=== PATIENT | male | born 1950 | race Caucasian/White ===

== ENCOUNTER 2018-05-15 10:29 | Inpatient (IN) | payer BC ==
[2018-05-15] MEDS ORDERED: ASPIRIN 81 MG CHEWABLE TABLET ONE (10:55)
[2018-05-15] MEDS ORDERED: MORPHINE 4 MG/ML SYR ONE (10:56)
[2018-05-15 11:00] LABS: Absolute Monocytes 0.6 K/uL (0.1-1.3); Absolute Neutrophil 4.4 K/uL (1.8-8.0); Basophils % 0.8 % (0-1.3); Eosinophils % 6.7 % (0-4.4); Lymphocytes % 26.6 % (15.3-44.8); MCH 30.9 pg (27.0-35.0); MPV 9.1 fL (7.6-11.3); Monocytes % 8.1 % (3.3-12.3); RBC Red Blood Cell Count 4.11 M/uL (4.33-5.43)
[2018-05-15 11:01] LABS: Protime INR 1.08
[2018-05-15 11:22] LABS: ALT/SGPT 29 U/L (12-78); AST/SGOT 19 U/L (15-37); Albumin 3.8 g/dL (3.4-5.0); Alkaline Phosphatase 126 U/L (45-117); BUN Blood Urea Nitrogen 25 mg/dL (7-18); Bicarbonate 27 mmol/L (21-32); Bilirubin Direct 0.1 mg/dL (0-0.2); Bilirubin Total 0.5 mg/dL (0.2-1.0); Glucose Level 296 mg/dL (74-106); Magnesium 1.9 mg/dL (1.8-2.4); NT PRO-BNP 75 pg/mL (<125); Potassium 4.3 mmol/L (3.5-5.1); Protein, Total 7.3 g/dL (6.4-8.2); Sodium Level 139 mmol/L (136-145); Troponin (Emerg Dept Use Only) < 0.02 ng/mL (0.0-0.045)
--- NOTE | 2018-05-15 11:31 | RAD REPORT ---
EXAM DESCRIPTION: [place] Single View05/15/2018 11:03 am CLINICAL HISTORY: Chest pain FINDINGS: The right hemidiaphragm is elevated. This is without significant change from a September 09 examination. The lungs appear clear of acute infiltrate. The heart is normal size
[2018-05-15] MEDS ORDERED: INSULIN -REGULAR HUMAN 50 UNIT/0.5 ML ML ONE (11:38)
[2018-05-15] MEDS ORDERED: NA CHLORIDE 0.9% 500 ML ONE (11:38)
--- NOTE | 2018-05-15 11:40 | EDPHYS ---
Physician Documentation [facility] Name: Sirisha Myles Jr Age: 68 yrs Sex: Male : 1950 Arrival Date: 05/15/2018 Time: 10:33 Bed 5 Private MD: ED Physician Jhonny Becerril HPI: 05/15 10:40 This 68 yrs old Male presents to ER via EMS with complaints of Chest Pain > cp 32 y/o. 10:40 The patient or guardian reports chest pain that is located primarily in the anterior cp chest wall, left. Onset: this morning. 10:40 The pain radiates to the left arm, the left shoulder. cp 10:40 Associated signs and symptoms: Pertinent negatives: abdominal pain, cough, diaphoresis, cp dizziness, headache, lower extremity pain, lower extremity swelling, shortness of breath, syncope, vomiting. The chest pain is described as a pressure. Duration: The patient or guardian reports a single episode, that is still ongoing, but improving. Historical: - Allergies: 11:25 No Known Allergies; tw2 - Home Meds: 10:47 metformin 500 mg oral tab 1 tab 2 times per day [Active]; tw2 - PMHx: 10:47 Kidney stones; Diabetes - NIDDM; tw2 - PSHx: 10:47 Appendectomy; tw2 - Immunization history:: Adult Immunizations. - Social history:: Smoking status: . - Ebola Screening: : Patient denies travel to an Ebola-affected area in the 21 days before illness onset. ROS: 10:45 Constitutional: Negative for body aches, chills, fever, poor PO intake. cp 10:45 Eyes: Negative for injury, pain, redness, and discharge. cp 10:45 ENT: Negative for drainage from ear(s), ear pain, sore throat, difficulty swallowing, difficulty handling secretions. 10:45 Cardiovascular: Positive for chest pain, Negative for edema, palpitations. 10:45 Respiratory: Negative for cough, shortness of breath, wheezing. 10:45 Abdomen/GI: Negative for abdominal pain, vomiting, diarrhea, constipation, anorexia, black/tarry stool, rectal bleeding. 10:45 Back: Negative for pain at rest, pain with movement, radiated pain. 10:45 MS/extremity: Positive for pain, of the left shoulder and left arm, Negative for injury or acute deformity, decreased range of motion, paresthesias, tenderness. 10:45 Skin: Negative for cellulitis, rash. 10:45 Neuro: Negative for altered mental status, headache, syncope, near syncope, weakness. 10:45 All other systems are negative. Exam: 10:36 ECG was reviewed by the Attending Physician. cp 10:50 Constitutional: The patient appears in no acute distress, alert, awake, cp non-diaphoretic, non-toxic, well developed, well nourished. 10:50 Head/Face: Normocephalic, atraumatic. cp 10:50 Eyes: Periorbital structures: appear normal, Conjunctiva: normal, no exudate, no injection, Sclera: no appreciated abnormality, Lids and lashes: appear normal, bilaterally. 10:50 ENT: External ear(s): are unremarkable, Nose: is normal, Mouth: Lips: moist, Oral mucosa: pink and intact, moist, Posterior pharynx: is normal, airway is patent, no erythema, no exudate, Voice: is normal. 10:50 Neck: ROM/movement: is normal, is supple, without pain, no range of motions limitations, no meningismus, no nuchal rigidity. 10:50 Chest/axilla: Inspection: normal, Palpation: is normal, no crepitus, no tenderness. 10:50 Cardiovascular: Rate: normal, Rhythm: regular, Pulses: Pulses are 2+ in right radial artery and left radial artery. Heart sounds: murmur, not appreciated, Edema: is not appreciated, JVD: is not appreciated. 10:50 Respiratory: the patient does not display signs of respiratory distress, Respirations: normal, no use of accessory muscles, no retractions, no splinting, no tachypnea, labored breathing, is not present, Breath sounds: are clear throughout, no decreased breath sounds, no stridor, no wheezing. 10:50 Abdomen/GI: Inspection: abdomen appears normal, Bowel sounds: active, all quadrants, Palpation: abdomen is soft and non-tender, in all quadrants, rebound tenderness, is not appreciated, voluntary guarding, is not appreciated, involuntary guarding, is not appreciated. 10:50 Back: pain, is absent, ROM is normal. 10:50 Skin: cellulitis, is not appreciated, no rash present. 10:50 Neuro: Orientation: to person, place \T\ time. Mentation: lucid, able to follow commands, Cerebellar function: is grossly normal, Motor: moves all fours, strength is normal, Sensation: no obvious gross deficits. Vital Signs: 10:37 BP 144 / 82; Pulse 87; Resp 17; Pulse Ox 99% on 2 lpm NC; Pain 5/10; tw2 10:55 Temp 97.8(O); tw2 12:18 BP 150 / 82; Pulse 72; Resp 12; Pulse Ox 100% on R/A; tw2 13:00 BP 149 / 78; Pulse 64; Resp 17; Pulse Ox 100% on R/A; tw2 14:05 BP 159 / 70; Pulse 96; Resp 13; Pulse Ox 100% on R/A; tw2 MDM: 10:34 Patient medically screened. cp 11:00 Differential diagnosis: abnormal EKG, acute myocardial infarction, chest wall pain, cp costochondritis, pleurisy, pneumonia, pneumothorax, pulmonary embolus, stable angina, thoracic aortic disection, unstable angina. 11:37 The patient was given aspirin in the Emergency Department. Data reviewed: vital signs, nurses notes, lab test result(s), EKG, radiologic studies, plain films. Physician consultation: Talya Marina MD was called at 11:38, was contacted at 11:38, regarding admission, to the telemetry unit. patient's condition. 05/15 10:34 Order name: Basic Metabolic Panel; Complete Time: 11:24 cp 05/15 11:24 Interpretation: Normal except: GLUC 296; BUN 25; CRE 1.50; GFR 47. cp 05/15 10:34 Order name: CBC with Diff; Complete Time: 11:24 cp 05/15 11:24 Interpretation: Normal except: RBC 4.11; HGB 12.7; HCT 37.0; EOSINOPHIL % 6.7. cp 05/15 10:34 Order name: LFT's; Complete Time: 11:24 cp 05/15 10:34 Order name: Magnesium; Complete Time: 11:24 cp 05/15 10:34 Order name: NT PRO-BNP; Complete Time: 11:24 cp 05/15 10:34 Order name: PT-INR; Complete Time: 11:24 cp 05/15 10:34 Order name: Troponin (emerg Dept Use Only); Complete Time: 11:24 cp 05/15 11:25 Interpretation: TROPED < 0.02; Reviewed. 05/15 10:34 Order name: XRAY Chest (1 view); Complete Time: 11:34 05/15 11:35 Interpretation: Report review. 05/15 13:27 Order name: Glucose, Ancillary Testing; Complete Time: 13:39 EDMS 05/15 13:27 Order name: Glucose, Ancillary Testing; Complete Time: 13:39 EDMS 05/15 10:34 Order name: EKG; Complete Time: 10:35 cp 05/15 10:34 Order name: Cardiac monitoring; Complete Time: 10:37 cp 05/15 10:34 Order name: EKG - Nurse/Tech; Complete Time: 10:37 cp 05/15 10:34 Order name: IV Saline Lock; Complete Time: 10:37 05/15 10:34 Order name: Labs collected and sent; Complete Time: 10:48 cp 05/15 10:34 Order name: O2 Per Protocol; Complete Time: 10:38 cp 05/15 10:34 Order name: O2 Sat Monitoring; Complete Time: 10:37 05/15 13:40 Order name: Diet Ada 2000 Marcos; Complete Time: 13:40 cp EC:36 Rate is 84 beats/min. Rhythm is regular. SC interval is normal. QRS interval is normal. cp QT interval is normal. T waves are Inverted in lead aVL. Interpreted by me. Reviewed by me. Administered Medications: 10:54 Drug: Aspirin Chewable Tablet 324 mg Route: PO; tw2 11:26 Follow up: Response: No adverse reaction tw2 10:54 Drug: morphine 2 mg Route: IVP; Site: right antecubital; tw2 11:26 Follow up: Response: No adverse reaction tw2 11:35 Drug: NovoLIN R 7 units {Co-Signature: aa5 (Myah Estrada RN).} Route: Sub-Q; Site: tw2 right upper arm; 12:17 Follow up: Response: No adverse reaction; Blood sugar is lowered; 212 mg/dL blood sugar tw2 11:36 Drug: NS 0.9% 500 ml Route: IV; Rate: bolus; Site: right antecubital; tw2 13:00 Follow up: Response: No adverse reaction; IV Status: Completed infusion; IV Intake: tw2 500ml 12:17 Drug: Metoprolol 25 mg Route: PO; tw2 13:10 Follow up: Response: No adverse reaction; Blood pressure is lowered tw2 Point of Care Testing: Blood Glucose: 11:29 Blood Glucose: 285 mg/dL; tw2 12:18 Blood Glucose: 212 mg/dL; tw2 Ranges: Critical Glucose Levels:Adult <50 mg/dl or >400 mg/dl <40 mg/dl or >180 mg/dl Disposition: 05/15/18 11:39 Hospitalization ordered by Talya Marina for Observation. Preliminary diagnosis is Chest pain, unspecified. - Bed requested for Telemetry/MedSurg (observation). - Status is Observation. cp - Condition is Stable. - Problem is new. - Symptoms have improved. UTI on Admission? No Addendum: 05/19/2018 16:44 Co-signature as Attending Physician, Jhonny Becerril MD. g s Signatures: Dispatcher [employer] EDMS Trixie Arreola Corey, PA PA cp Khushboo Baker RN RN tw2 Jhonny Becerril MD MD Myah Estrada RN aa5 Corrections: (The following items were deleted from the chart) 05/15 13:28 11:39 Hospitalization Ordered by Talya Marina MD for Observation. Preliminary diagnosis bd is Chest pain, unspecified. Bed requested for Telemetry/MedSurg (observation). Status is Observation. Condition is Stable. Problem is new. Symptoms have improved. UTI on Admission? No. cp 14:59 13:28 05/15/2018 11:39 Hospitalization Ordered by Talya Marina MD for Observation. cp Preliminary diagnosis is Chest pain, unspecified. Bed requested for Telemetry/MedSurg (observation). Status is Observation. Condition is Stable. Problem is new. Symptoms have improved. UTI on Admission? No. bd
--- NOTE | 2018-05-15 11:40 | ER ---
Nurse's Notes [facility] Name: Sirisha Myles Jr Age: 68 yrs Sex: Male : 1950 Arrival Date: 05/15/2018 Time: 10:33 Bed 5 Private MD: Diagnosis: Chest pain, unspecified Presentation: 05/15 10:30 Presenting complaint: EMS states: pt c/o chest pain that started 2 days ago, it does tw2 radiate down left arm, he describes it as a sharp pain,and he says he is feeling weak, we gave 2 SL Nitro in route, he states that did relieve his pain, he is hypertensive for us 178/100, blood glucose of 210, 20G LEFT AC. Transition of care: patient was not received from another setting of care. Onset of symptoms was May 15, 2018. Risk Assessment: Do you want to hurt yourself or someone else? Patient reports no desire to harm self or others. Initial Sepsis Screen: Does the patient meet any 2 criteria? No. Patient's initial sepsis screen is negative. Does the patient have a suspected source of infection? No. Patient's initial sepsis screen is negative. Care prior to arrival: Medication(s) given: Nitroglycerin, 0.4 mg SL x 2, IV initiated. 20 GA, in the right antecubital area. 10:30 Method Of Arrival: EMS: [facility] tw2 10:30 Acuity: SIDRA 3 tw2 Historical: - Allergies: 11:25 No Known Allergies; tw2 - Home Meds: 10:47 metformin 500 mg oral tab 1 tab 2 times per day [Active]; tw2 - PMHx: 10:47 Kidney stones; Diabetes - NIDDM; tw2 - PSHx: 10:47 Appendectomy; tw2 - Immunization history:: Adult Immunizations. - Social history:: Smoking status: . - Ebola Screening: : Patient denies travel to an Ebola-affected area in the 21 days before illness onset. Screenin:41 Abuse screen: Denies threats or abuse. Nutritional screening: No deficits noted. tw2 Tuberculosis screening: No symptoms or risk factors identified. Fall Risk None identified. Assessment: 10:33 Reassessment: EKG at bedside at this time. tw2 10:39 General: Appears in no apparent distress. Behavior is calm, cooperative, appropriate tw2 for age. Pain: Complains of pain in chest Pain radiates to left arm. Pain: Pain began 2-3 days ago. Neuro: Level of Consciousness is awake, alert, obeys commands, Oriented to person, place, time, situation. Cardiovascular: Denies shortness of breath, Heart tones S1 S2 Patient's skin is warm and dry. Respiratory: Airway is patent Respiratory effort is even, unlabored, Respiratory pattern is regular, symmetrical, Breath sounds are clear bilaterally. GI: No signs and/or symptoms were reported involving the gastrointestinal system. Abdomen is round non-distended, obese, Bowel sounds present X 4 quads. : No signs and/or symptoms were reported regarding the genitourinary system. EENT: No signs and/or symptoms were reported regarding the EENT system. Derm: No signs and/or symptoms reported regarding the dermatologic system. Musculoskeletal: Range of motion: intact in all extremities. 11:40 Reassessment: Patient appears in no apparent distress at this time. No changes from tw2 previously documented assessment. Patient and/or family updated on plan of care and expected duration. Pain level reassessed. Patient is alert, oriented x 3, equal unlabored respirations, skin warm/dry/pink. 12:18 Reassessment: Patient appears in no apparent distress at this time. No changes from tw2 previously documented assessment. Patient and/or family updated on plan of care and expected duration. Pain level reassessed. Patient is alert, oriented x 3, equal unlabored respirations, skin warm/dry/pink. 13:00 Reassessment: Patient appears in no apparent distress at this time. No changes from tw2 previously documented assessment. Patient and/or family updated on plan of care and expected duration. Pain level reassessed. Patient is alert, oriented x 3, equal unlabored respirations, skin warm/dry/pink. 14:07 Reassessment: Patient appears in no apparent distress at this time. No changes from tw2 previously documented assessment. Patient and/or family updated on plan of care and expected duration. Pain level reassessed. Patient is alert, oriented x 3, equal unlabored respirations, skin warm/dry/pink. Vital Signs: 10:37 BP 144 / 82; Pulse 87; Resp 17; Pulse Ox 99% on 2 lpm NC; Pain 5/10; tw2 10:55 Temp 97.8(O); tw2 12:18 BP 150 / 82; Pulse 72; Resp 12; Pulse Ox 100% on R/A; tw2 13:00 BP 149 / 78; Pulse 64; Resp 17; Pulse Ox 100% on R/A; tw2 14:05 BP 159 / 70; Pulse 96; Resp 13; Pulse Ox 100% on R/A; tw2 ED Course: 10:30 Arm band placed on. tw2 10:30 Bed in low position. Call light in reach. Side rails up X2. media monitor on. Pulse tw2 ox on. NIBP on. 10:33 Patient arrived in ED. tw2 10:33 Carroll Dowling PA is PHCP. cp 10:33 Jhonny Becerril MD is Attending Physician. cp 10:37 Triage completed. tw2 10:41 Maintain EMS IV. Dressing intact. Good blood return noted. Site clean \T\ dry. Gauge \T\ tw 2 site: 20 g RIGHT AC. Patient maintains SpO2 saturation greater than 95% on room air. 10:48 Initial lab(s) drawn, by me, sent to lab. EKG done, by solar thermal technician. reviewed by Carroll FLORES. 11:01 X-ray completed. Patient tolerated procedure well. sw 11:04 XRAY Chest (1 view) In Process Unspecified. EDMS 11:24 Khushboo Baker, KIM is Primary Nurse. tw2 11:38 Talya Marina MD is Hospitalizing Provider. cp 13:45 Echocardiogram with Doppler by technician anatomic pathology. tc 14:10 No provider procedures requiring assistance completed. Patient admitted, IV remains in tw2 place. Administered Medications: 10:54 Drug: Aspirin Chewable Tablet 324 mg Route: PO; tw2 11:26 Follow up: Response: No adverse reaction tw2 10:54 Drug: morphine 2 mg Route: IVP; Site: right antecubital; tw2 11:26 Follow up: Response: No adverse reaction tw2 11:35 Drug: NovoLIN R 7 units {Co-Signature: aa5 (Myah Estrada RN).} Route: Sub-Q; Site: tw2 right upper arm; 12:17 Follow up: Response: No adverse reaction; Blood sugar is lowered; 212 mg/dL blood sugar tw2 11:36 Drug: NS 0.9% 500 ml Route: IV; Rate: bolus; Site: right antecubital; tw2 13:00 Follow up: Response: No adverse reaction; IV Status: Completed infusion; IV Intake: tw2 500ml 12:17 Drug: Metoprolol 25 mg Route: PO; tw2 13:10 Follow up: Response: No adverse reaction; Blood pressure is lowered tw2 Point of Care Testing: Blood Glucose: 11:29 Blood Glucose: 285 mg/dL; tw2 12:18 Blood Glucose: 212 mg/dL; tw2 Ranges: Intake: 13:00 IV: 500ml; Total: 500ml. tw2 Outcome: 11:39 Decision to Hospitalize by Provider. cp 14:10 Admitted to Med/surg accompanied by tech, via stretcher, room 410, with chart, Report tw2 called to KIM Helton 14:10 Condition: stable 14:10 Instructed on the need for admit. 14:59 Patient left the ED. cp Signatures: Dispatcher [employer] EDUog Garcia jb1 Meg Feliciano, critical care technician EKG Grecia Faria Corey, PA PA cp Khushboo Baker, RN RN tw2 Myah Estrada RN aa5
[2018-05-15] MEDS ORDERED: METOPROLOL TAR 25 MG TAB ONE (12:18)
[2018-05-15] MEDS ORDERED: NITROGLYCERIN 0.4 MG/TAB SL PRN (12:27)
[2018-05-15] MEDS ORDERED: ACETAMINOPHEN 500 MG TAB PO PRN (12:27)
[2018-05-15] MEDS ORDERED: GLUCAGON 1 MG/VIAL IM PRN (14:59)
[2018-05-15] MEDS ORDERED: D50W 25 GM/50 ML SYRINGE IV PRN (14:59)
[2018-05-15] MEDS: MORPHINE 4 MG/ML SYR IV PRN ×2 (15:04→23:23)
[2018-05-15 15:21] VITALS: BMI 36.5
--- NOTE | 2018-05-15 15:27 | ECHO ---
HEIGHT: 5 ft 8 in WEIGHT: 240 lb 0 oz DATE OF STUDY: 05/15/[address]: Talya Marina MD 2-DIMENSIONAL: YES M.MODE: YES DOPPLER: YES COLOR FLOW: YES TDS: NO PORTABLE: YES DEFINITY: NO BUBBLE STUDY: NO DIAGNOSIS: CHEST PAIN CARDIAC HISTORY: CATHERIZATION: NO SURGERY: NO PROSTHETIC VALVE: NO PACEMAKER: NO MEASUREMENTS (cm) DIASTOLIC (NORMALS) SYSTOLIC (NORMALS) IVSd 0.9 (0.6-1.2) LA Diam 3.1 (1.9-4.0) LVEF 54% LVIDd 4.7 (3.5-5.7) LVIDs 3.4 (2.0-3.5) %FS 28% LVPWd 1.1 (0.6-1.2) Ao Diam 3.5 (2.0-3.7) 2 DIMENSIONAL ASSESSMENT: RIGHT ATRIUM: NORMAL LEFT ATRIUM: NORMAL RIGHT VENTRICLE: NORMAL LEFT VENTRICLE: NORMAL TRICUSPID VALVE: NORMAL MITRAL VALVE: NORMAL PULMONIC VALVE: NORMAL AORTIC VALVE: NORMAL PERICARDIAL EFFUSION: NONE AORTIC ROOT: NORMAL LEFT VENTRICULAR WALL MOTION: NORMAL. DOPPLER/COLOR FLOW: MILD TRICUSPID REGURGITATION. COMMENTS: MILD TRICUSPID REGURGITATION. NORMAL LEFT VENTRICULAR SIZE AND FUNCTION. NO WALL MOTION ABNORMALITY. NO EFFUSION. TECHNOLOGIST: YASMANI LOONEY
--- NOTE | 2018-05-15 15:27 | EKG ---
Test Date: 2018-05-15 Test Time: 10:33:21 Electroplating Worker: DAVE MEASUREMENT RESULTS: Intervals: Rate: 84 SD: 190 QRSD: 92 QT: 368 QTc: 434 [place]: P: 49 SD: 190 QRS: 68 T: 78 INTERPRETIVE STATEMENTS: Normal sinus rhythm Normal ECG Compared to ECG 09/03/2016 22:40:25 Sinus tachycardia no longer present Electronically Signed On 05-15-18 15:25:28 CDT by Fabrice Ya
[2018-05-15] MEDS ORDERED: INFLUENZA VACCINE (for 3y+) 0.5 ML DOSE IMVAC ONE (17:00)
[2018-05-15] MEDS ORDERED: PNEUMOCOCCAL VACCINE 0.5 ML IMVAC ONE (17:00)
[2018-05-15] MEDS ORDERED: ENOXAPARIN 40 MG/0.4 ML SQ SCH (17:00)
[2018-05-15] MEDS: CYCLOBENZAPRINE 10 MG TAB PO SCH ×2 (17:26→22:10)
[2018-05-15] MEDS: INSULIN -REGULAR HUMAN 50 UNIT/0.5 ML ML SQ SCH ×2 (17:27→20:10)
[2018-05-15] MEDS: METOPROLOL TAR 50 MG TAB PO SCH (20:23)
[2018-05-15] MEDS ORDERED: METOPROLOL TAR 25 MG TAB PO SCH (21:00)
[2018-05-15 22:24] LABS: Urine Appearance CLEAR; Urine Bilirubin NEGATIVE (NEG); Urine Blood NEGATIVE (NEG); Urine Color YELLOW; Urine Glucose TRACE (NEG); Urine Protein 1+ (NEG); Urine Specific Gravity 1.025 (1.005-1.030); Urine Urobilinogen 0.2 mg/dL (0.2-1.0)
[2018-05-15 22:33] LABS: Urine Microscopic Reflex ORDER UMIC
[2018-05-15 23:46] LABS: Urine Bacteria <20 /HPF (NONE SEEN); Urine Culture Reflex Order NOT NEEDED; Urine RBC <5 /HPF (NONE SEEN)
--- NOTE | 2018-05-16 00:58 | HP ---
Date of Admission: 05/15/2018 Code Status: Full. Chief Complaint: Chest pain. History Of Present Illness: The patient is a 68-year-old male with past medical history of hypertens ion, diabetes, comes in to the hospital with pain on his left arm that has been ongoing for the past couple of days. 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 He also reported radiation of the pain to his neck and jaw in towa rds the left side of his chest. The patient's symptoms are constant, moderate, and progressively wor sening, did not improve over the past 2 days, therefore came into the ER for further evaluation. He denies any nausea, vomiting, fever, or chills. No cough or sputum production. No diaphoresis or pal pitations. The patient's initial workup was negative including EKG and cardiac enzymes. The patient was then referred for admission for further evaluation. When seen in the ER, he was awake, alert, o riented x3, in some mild distress. Past Medical History: Hypertension, diabetes. Past Surgical History: Appendectomy, nephrolithiasis, and back surgery with fusion x2. Allergies: NO KNOWN DRUG ALLERGIES. Medications: List reviewed. Social History: The patient denies any tobacco use, alcohol use, or illicit drug use. 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 Family History: Mother had diabetes. Review of Systems: An 11-point system reviewed, negative except as per HPI. Physical Examination: Vital Signs: Blood pressure 144/82, pulse 87, respirations 17, O2 saturation 99% on 2 L via nasal ca nnula. General: Awake, alert, oriented x3. Some mild distress. Obese male. HEENT: Normocephalic, atraumatic. PERRLA. EOMI. Moist mucous membranes. Oropharynx is clear. Po or dentition. Conjunctiva is anicteric. Neck: Supple. No JVD. Trachea midline. CV: S1, S2. No murmurs. Regular rate and rhythm. Peripheral pulses present. Respiratory: Clear to auscultation bilaterally. No wheezing or stridor. No use of accessory muscle s. Gastrointestinal: Abdomen is soft, nontender, nondistended. Positive bowel sounds. No guarding or rigidity. Extremities: No clubbing, cyanosis, or edema. No calf tenderness. Neuro: Cranial nerves 2-12 intact grossly. No focal neurological deficit. Speech is normal. Stren gth is 5/5 in bilateral upper and lower extremities. Musculoskeletal: Tenderness to palpation in the left anterior chest wall around the clavicle. Decre asing range of motion, left shoulder. Laboratory Data: Sodium 139, potassium 4.3, chloride 106, CO2 27, BUN 25, creatinine 1.5, glucose 29 6, calcium 8.8, magnesium 1.9. Troponin less than 0.02. WBC 7.5, H and H 12.7 and 37, platelets 224 , neutrophils 57%. INR 1.08. Chest x-ray shows lungs are clear of acute infiltrate. Heart is don l sized. Right hemidiaphragm is elevated without significant change from August 2016. EKG, no ST e levation, does have some inverted T-waves at V5. Assessment: A 68-year-old male with: 1.Chest pain, rule out acute coronary syndrome. We will start on chest pain guidelines. Obtain car diac enzymes x3. EKG p.r.n. Morphine and nitroglycerin as needed. We will obtain echocardiogram an d consult Cardiology. 2.Obesity. 3.Diabetes mellitus type 2 [place] with hyperglycemia. We will check hemoglobin A1c. Continue on sliding scale insulin. Continue Accu-Cheks. 4.Essential hypertension, stable. We will resume home medications. 5.Gastrointestinal and deep vein thrombosis prophylaxis, PPI and Lovenox. Plan: Admit the patient to Med-Surg, place as observation. Pain may be related to musculoskeletal p ain. We will give a dose of muscle relaxant. The patient does have risk factors including hypertens ion, diabetes, obesity, and metabolic syndrome. We will rule out ACS. Likely discharge in the next 24 hours. /DONN Voice ID: [id number]
[2018-05-16] MEDS: MORPHINE 4 MG/ML SYR IV PRN (04:04)
[2018-05-16 04:12] LABS: Absolute Lymphocytes (CBC) 2.4 K/uL (0.7-4.9); Absolute Monocytes 0.7 K/uL (0.1-1.3); Absolute Neutrophil 5.6 K/uL (1.8-8.0); Basophils % 1.1 % (0-1.3); Eosinophils % 6.2 % (0-4.4); Lymphocytes % 25.6 % (15.3-44.8); MCH 31.1 pg (27.0-35.0); MCV 89.1 fL (80-100); MPV 9.3 fL (7.6-11.3); Monocytes % 7.3 % (3.3-12.3); RBC Red Blood Cell Count 3.93 M/uL (4.33-5.43)
[2018-05-16 04:34] LABS: Potassium 4.3 mmol/L (3.5-5.1)
[2018-05-16] MEDS: ASPIRIN EC 81 MG TAB PO SCH (08:20)
[2018-05-16] MEDS: CYCLOBENZAPRINE 10 MG TAB PO SCH ×3 (08:20→20:35)
[2018-05-16] MEDS: METOPROLOL TAR 50 MG TAB PO SCH ×2 (08:21→20:36)
[2018-05-16] MEDS: INSULIN -REGULAR HUMAN 50 UNIT/0.5 ML ML SQ SCH ×4 (08:21→20:39)
[2018-05-16] MEDS: LISINOPRIL 10 MG TAB PO SCH (08:21)
[2018-05-16] MEDS ORDERED: REGADENOSON 0.4 MG/5 ML SYR IV ONE (08:50)
[2018-05-16] MEDS ORDERED: FENTANYL CITR 100 MCG/2 ML IV ONE (09:05)
--- NOTE | 2018-05-16 11:34 | RAD REPORT ---
EXAM DESCRIPTION: MRI - C Spine W/Wo Cont - 05/16/2018 11:04 am CLINICAL HISTORY: Left arm numbness COMPARISON: None TECHNIQUE: Axial and sagittal magnetic resonance imaging of the cervical spine was obtained. 20 cc M ultiHance administered intravenously FINDINGS: C2-3 is unremarkable Disc bulge and osteophytes are present at C3-4. Mild narrowing of the right and mild to moderate narr owing of the left neural foramina is seen. C4-5 is unremarkable An 10 x 7 x 15 millimeter (cc by AP by trans) broad-based disc herniation is present at C5-6 which ex tends centrally as well as right and left posterolaterally. The spinal cord is compressed. The thecal sac measures 7 millimeters. Moderate to marked narrowing of the neural foramina bilaterally is seen. A 7 x 5 x 18 millimeter (cc by AP by trans) central/left posterolateral disc herniation is present at C6-7 narrowing the left lateral recess. Marked narrowing left neural foramina is seen. C7-T1 is unremarkable. The spinal cord is normal signal. No significant abnormal enhancement within the spine is noted. IMPRESSION: Large broad-based disc herniation C5-6 Large central/left posterolateral disc herniation C6-7
[2018-05-16] MEDS ORDERED: METHYLPREDNISOLONE 125 MG INJ IV ONE (12:19)
[2018-05-16] MEDS ORDERED: HYDROMORPHONE HCL 1 MG/ML INJ IV PRN (13:02)
--- NOTE | 2018-05-16 13:12 | RAD REPORT ---
EXAM DESCRIPTION: NM - Rest Stress Cardiac Imaging - 05/16/2018 12:42 pm CLINICAL HISTORY: Chest pain. COMPARISON: None. TECHNIQUE: The patient was administered approximately 10mCi of Tc 99m Sestamibi prior to resting SPE CT imaging of the heart. The patient was then administered approximately 30 mCi of Tc 99m Sestamibi f ollowing exercise or pharmacologic stress. Multiplanar SPECT images were reviewed. FINDINGS: A small area of diminished radiotracer uptake involves the apical left ventricular myocar dium on stress images. This has a more normal appearance on rest images. Mild diminished radiotracer uptake involving the inferior left ventricular myocardium likely is secon mckenzie to attenuation from the diaphragm Left ventricular ejection fraction equals 54% IMPRESSION: Small apparent reversible perfusion defect involving the apical left ventricular myocar dium may indicate stress-induced ischemia
--- NOTE | 2018-05-16 13:23 | CON ---
Chief Complaint: Pain in the left arm. History Of Present Illness: Pain in the left arm has been there for several days. It hurts him a lo t when he leans over to his left side and extends his arm as if to pick something off the floor from the sitting position. There is no numbness in the fingers. He gets pain relief with various pain me dicines, but it returns. It does not seem to be exacerbated by exertion. He is worried that it is h is heart. He has multiple risk factors for heart disease including diabetes, hypertension, and tobac co use. Outpatient medications have been metoprolol, aspirin, metformin, multivitamin. He has never had myocardial infarction or stroke or any vascular interventions. Never had a stress test. Since he has been in the hospital, his hemoglobin is mildly low at 12.2. His creatinine is slightly elevat ed 1.5 and 1.4 two different measurements. Blood sugars are all elevated. Troponins are normal. To adriana cholesterol is 140, triglycerides 94, and his electrocardiogram is within normal limits. Recommendation: I do not think this represents CAD, but with multiple risk factors, I will recommend we do a stress test. It would be an unusual presentation for CAD, but given the setting, I think it is also ly to do an MRI of the cervical spine, see if he has spinal stenosis. ANGI Voice ID: [id number] Report ID: [id number]
[2018-05-16] MEDS ORDERED: KETOROLAC 30 MG/ML INJ IV ONE (13:51)
[2018-05-16] MEDS ORDERED: HYDRALAZINE HCL 20 MG/ML VIAL IV PRN (13:59)
--- NOTE | 2018-05-16 14:37 | TREADPHA ---
DX: CHEST PAIN Date of Study: 05/16/18 Ht: 5 8 Wt: 240 lb 0 oz Consulting Physician: HOLDEN MEDICATIONS: TYLENOL, ASPIRIN, FLEXERIL, DEXTROSE, LOVENOX, GLUCAGEN, NOVOLIN, PRINIVIL, LOPRESSOR, NOTROSTAT HISTORY: 68 YEAR OLD MALE WITH CHEST PAIN. MEDICAL HISTORY OF DIABETES MELLITUS, KIDNEY STONES, HYPERTENSION. PHYSICIAL EXAMINATION: RESTING B.P.: 176/85 RESTING H.R.: 82 RESTING EKG: NORMAL PROTOCOL: LEXISCAN EXERCISE TIME: 3:30 B.P. AT PEAK STRESS: 154/80 IMPRESSION: LEXISCAN INJECTED, CARDIOLITE INJECTED PER PROTOCOL, SEE NUCLEAR MEDICINE REPORT. NO SUPRA VENTRICULAR TACHYCARDIA, NO VENTRICULAR TACHYCARDA, NO PREMATURE VENTRICULAR COMPLEXES. NON DIAGNOSTIC EKG WITH LEXISCAN STRESS. DENIED CHEST PAIN.
--- NOTE | 2018-05-16 17:59 | PN ---
Date of Progress Note: 05/16/2018 Subjective: The patient is seen and examined. Chart reviewed, and the case was discussed with KIM Leal. The patient is still complaining of significant left arm pain. The patient had a stre ss test today, which was abnormal. Also spoke with Dr. Zimmer, neurosurgeon, regarding outpatient re ferral for his cervical spondylosis. Review of Systems: Negative except as above. Medications: List reviewed. Physical Examination: Vital Signs: Temperature 97.5, heart rate 74, blood pressure 174/102, respirations 16, O2 of 96% on room air. General: Awake, alert, oriented x3. Some acute distress due to arm pain. An elderly male, obese. CV: S1, S2. No murmurs. Regular rate and rhythm. Peripheral pulses present. Respiratory: Moving air well bilaterally. No wheezing or stridor. Gastrointestinal: Abdomen is soft, nontender, nondistended. Positive bowel sounds. Extremities: No clubbing, cyanosis, or edema. Neurologic: Nonfocal. Laboratory Data: Sodium 139, potassium 4.3, chloride 105, CO2 of 27, BUN 26, creatinine 1.4, glucose 219. Hemoglobin A1c 8.1%. Calcium 8.5. Triglycerides 94, cholesterol 148, LDL 80, HDL 41. WBC 9. 4, H and H of 12.2 and 35, platelets 212, neutrophils 59%. Assessment And Plan: A 68-year-old male with: 1.Chest pain. Acute coronary syndrome ruled out, however, stress test does show some stress-induced ischemia. The patient will go for heart catheterization in a.m. 2.Left arm pain and neck pain. Cervical spine MRI does show large broad-based disk herniation, C5-C 6; large central left posterior lateral disk herniation, C6-7. The patient does have some spinal cor d compression. We will give Solu-Medrol 125 mg IV x1. Start on gabapentin. Adjust pain medications . The patient states his pain is still not controlled. Spoke with Dr. Zimmer, neurosurgeon, who pushpa l see the patient on Monday as an outpatient to recommend any acute intervention at this time. 3.Essential hypertension, uncontrolled. We will add IV p.r.n. medications. 4.Diabetes mellitus type 2, non-insulin requiring, with hyperglycemia, hemoglobin A1c 8.1%, uncontro lled. Continue Accu-Cheks and sliding scale. 5.Chronic kidney disease stage 2. Creatinine is around his baseline. Seems to be chronic. 6.Gastrointestinal and deep venous thrombosis prophylaxis with PPI and Lovenox. Plan: Adjust pain medications. Echocardiogram revealed EF 54%. No wall motion abnormality or effus ion. The patient will need outpatient followup with Neurosurgery for cervical spine decompression, h owever, needs cardiac catheterization first. /DONN Voice ID: [id number] Report ID: [id number]
[2018-05-16] MEDS: GABAPENTIN 300 MG CAP PO SCH (20:36)
[2018-05-16] MEDS: KETOROLAC 30 MG/ML INJ IV PRN (20:37)
[2018-05-16] MEDS: ATORVASTATIN 40 MG TAB PO SCH (20:37)
[2018-05-16] MEDS: ACETYLCYST 20% 800 MG/4 ML VIAL PO SCH (20:38)
[2018-05-17] MEDS: METOPROLOL TAR 50 MG TAB PO SCH ×2 (06:23→20:34)
[2018-05-17] MEDS ORDERED: NA CHLORIDE 0.9% 1,000 ML ONE (06:23)
[2018-05-17] MEDS: ACETYLCYST 20% 800 MG/4 ML VIAL PO SCH ×2 (06:23→20:36)
[2018-05-17] MEDS: LISINOPRIL 10 MG TAB PO SCH (06:24)
[2018-05-17] MEDS: ASPIRIN EC 81 MG TAB PO SCH (06:24)
[2018-05-17] MEDS: INSULIN -REGULAR HUMAN 50 UNIT/0.5 ML ML SQ SCH ×4 (07:55→20:32)
[2018-05-17] MEDS: CYCLOBENZAPRINE 10 MG TAB PO SCH ×4 (08:42→20:33)
[2018-05-17] MEDS ORDERED: FENTANYL CITR 100 MCG/2 ML ONE (13:04)
[2018-05-17] MEDS ORDERED: MIDAZOLAM HCL 2 MG/2 ML INJ ONE ×2 (13:04→13:27)
[2018-05-17] MEDS ORDERED: ATROPINE SULF 1 MG/10 ML SYR IV ONE (13:04)
[2018-05-17] MEDS ORDERED: NA CHLORIDE 0.9% 50 ML ONE (13:06)
[2018-05-17] MEDS ORDERED: HEPA 1000U/500MLS 1,000 UNIT/500 ML BAG IV ONE (13:08)
[2018-05-17] MEDS ORDERED: NITROGLYCERIN/D5W 25 MG/250 ML BTL IV ONE (13:51)
[2018-05-17] MEDS ORDERED: NITROGLYCERIN 100 MCG/ML SYR (for cath lab use only) IV ONE (13:51)
[2018-05-17] MEDS ORDERED: CLOPIDOGREL 75 MG TABLET ONE (14:03)
--- NOTE | 2018-05-17 19:42 | PN ---
Date of Progress Note: 05/17/2018 Subjective: The patient seen and examined. Chart reviewed and case discussed with RN and Dr. Ruslan rollins. The patient going for heart catheterization today, had an angioplasty done. Does have some mild coronary artery disease. Review of Systems: Negative except as above. Medications: List reviewed. Objective: Vital Signs: Temperature 98, heart rate 70, respirations 18, O2 98% on 2 L, blood pressu re 104/58. General: Awake, alert, oriented x3. No acute distress. Elderly male, obese. CV: S1, S2. No murmurs. Regular rate and rhythm. Peripheral pulses present. Respiratory: Moving air well bilaterally. No wheezing or stridor. Gastrointestinal: Abdomen is soft, nontender, nondistended. Positive bowel sounds. Extremities: No clubbing, cyanosis, or edema. Neurologic: Nonfocal. Musculoskeletal: Left arm and left lateral chest pain. No tenderness. Laboratory Data: Sodium 138. Glucose range from 388 to 219. Assessment And Plan: A 68-year-old male with: 1.Chest pain. Acute coronary syndrome ruled out. The patient does have some stress induced ischemi a. Cardiac cath showed 40-50% stenosis of the LAD and some mild disease in the RCA, which were dilat ed with angioplasty. No stents were placed. We will continue with aspirin, Plavix, statin, beta-blo cker, and ALE inhibitor. Appreciate Dr. Ya's input. 2.Cervical spine spondylosis with cord compression. The patient will see Dr. Zimmer tomorrow for po ssible decompression. The patient should be able to have surgery in 1 month and can stop Plavix at t hat time. 3.Essential hypertension, uncontrolled. 4.Diabetes mellitus type 2 [id number] with hyperglycemia. Hemoglobin A1c at 8.1%, uncont rolled. We will adjust insulin. 5.Chronic kidney disease, stage 2. Creatinine around baseline. 6.Gastrointestinal and deep venous thrombosis prophylaxis with PPI and Lovenox. Plan: Repeat CBC, CMP in a.m. Continue chest pain guidelines. Discharge in a.m. once cleared by Ca rdiology. SA/MODL Voice ID: [id number] Report ID: [id number]
[2018-05-17] MEDS: ATORVASTATIN 40 MG TAB PO SCH (20:33)
[2018-05-17] MEDS: GABAPENTIN 300 MG CAP PO SCH (20:33)
[2018-05-17] MEDS ORDERED: INSULIN GLARGINE 100 UNITS/ML SQ SCH (21:00)
[2018-05-18 00:17] VITALS: O2SAT 98
[2018-05-18 05:16] LABS: Absolute Lymphocytes (CBC) 2.6 K/uL (0.7-4.9); Absolute Monocytes 0.9 K/uL (0.1-1.3); Absolute Neutrophil 11.3 K/uL (1.8-8.0); Basophils % 0.4 % (0-1.3); Eosinophils % 1.4 % (0-4.4); Hematocrit 36.6 % (39.6-49.0); MCH 31.1 pg (27.0-35.0); MCV 89.9 fL (80-100); MPV 9.6 fL (7.6-11.3); RBC Red Blood Cell Count 4.07 M/uL (4.33-5.43)
[2018-05-18 05:52] LABS: Potassium 4.4 mmol/L (3.5-5.1)
[2018-05-18] MEDS: INSULIN -REGULAR HUMAN 50 UNIT/0.5 ML ML SQ SCH (09:18)
[2018-05-18] MEDS: CYCLOBENZAPRINE 10 MG TAB PO SCH (09:23)
[2018-05-18] MEDS: LISINOPRIL 10 MG TAB PO SCH (09:24)
[2018-05-18] MEDS: METOPROLOL TAR 50 MG TAB PO SCH (09:24)
[2018-05-18] MEDS: KETOROLAC 30 MG/ML INJ IV PRN (09:25)
[2018-05-18] MEDS: ASPIRIN EC 81 MG TAB PO SCH (09:25)
[2018-05-18] MEDS: ACETYLCYST 20% 800 MG/4 ML VIAL PO SCH (09:25)
[2018-05-18 17:24] VITALS: BP 117/55; TEMP 97.8
--- NOTE | 2018-05-19 07:44 | DS ---
Date of Discharge: 05/18/2018 Consultants: Dr. Ya and Dr. Leal with Cardiology. Procedures: On 05/16/2018, Nuclear medicine stress test which showed a perfusion defect of the apica l left ventricular myocardium. Cardiac catheterization on 05/17/2018 showed 40% to 50% LAD stenosis and some mild RCA stenosis, status post balloon angioplasty, no stents. Admitting Diagnoses: 1.Chest pain. 2.Obesity. 3.Diabetes mellitus type 2, non-insulin requiring, with hyperglycemia. 4.Left arm pain and neck pain. 5.Essential hypertension. Discharge Diagnoses: 1.Chest pain, acute coronary syndrome ruled out. 2.Coronary artery disease, status post angioplasty. 3.Cervical spine spondylosis with cord compression. The patient to follow up with Dr. Zimmer in [facility] rosurgery as outpatient. 4.Essential hypertension. 5.Diabetes mellitus type 2, non-insulin requiring, with hyperglycemia, uncontrolled, A1c 8.1%. 6.Chronic kidney disease, stage 2. 7.Obesity, body mass index 36.5. Hospital Course: The patient is a 68-year-old male who comes in with chest pain as well as left arm pain and neck pain. 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 Has history of hypertension, diabetes, morbid obesity; however, does not smoke. The patient was evaluated for acute coronary syndrome. His cardi ac enzymes were negative. His chest pain did resolve. He was seen by Cardiology, recommended cardia c stress test which was abnormal as mentioned above. The patient then went for cardiac catheterizati on and had balloon angioplasty. The patient's symptoms resolved. He did require adjustment of his p ain medications to relieve his arm pain which was secondary to cervical spondylosis and cord compress ion. He was given IV steroids as well. Cervical spine MRI was also obtained. Dr. Zimmer was contac matt and patient will see Dr. iZmmer as an outpatient as there are no neurosurgery services at this [facility]. The patient will need a decompression surgery for his cord compression. At this juncture, t he patient does have some mild weakness and some tingling. He was started on gabapentin which improv ed his symptoms. The patient will be on aspirin, Plavix, and statin. He was counseled regarding his new medications and the importance of being compliant with his medication regimen. The patient's li pid panel was unremarkable. The patient was then cleared for discharge from Cardiology standpoint. Medications: As per medication reconciliation list. Followup: Follow up with primary care physician in 2-3 days. Follow up with bisque brusher, Dr. Kevyn ta, in 2 weeks. Follow up with neurosurgeon, Dr. Zimmer, on Monday. The patient's face sheet was fa xed over to Dr. Zimmer's office. The patient was provided with contact information. I spoke persona marisay with Dr. Zimmer regarding the patient. Diet: Diabetic diet. Activity: As tolerated. The patient needs to see Neurosurgery prior to being cleared for return to work. Total time spent discharging the patient was 41 minutes. No driving or operating heavy machinery whi le on narcotics. Physical Examination: General: Awake, alert, oriented, no acute distress. CV: S1, S2. No murmurs. Respiratory: Moving air well bilaterally. Abdomen: Abdomen is soft, nontender, nondistended. Positive bowel sounds. Extremities: No clubbing, cyanosis, or edema. Neurologic: Nonfocal. SA/MODL Voice ID: [id number] Report ID: [id number]
--- NOTE | 2018-05-20 04:47 | OP ---
Date of Procedure: 05/17/2018 Surgeon: Fabrice Ya MD Hair Boiler Operator: Allyssa Valentin. Total conscious sedation was 45 minutes. Procedure: Left heart catheterization, selective coronary arteriogram, angioplasty of the proximal a nd mid right coronary artery. Indications: Mr. Myles is 68 years old, was admitted to Dr. Marina, chest pain, needing for spine surgery, abnormal stress test, brought into the boot and shoe laborer on 05/17/2018. Procedure In Detail: The patient prepped and draped in the routine sterile fashion, given 2 mg of Ve rsed for IV sedation. A 6-Monegasque sheath was introduced in the right common femoral artery and StarCl ose was used to close the case. Diagnostic catheterization using Mickey catheter revealed about a 4 0% proximal LAD lesion, very large vessel. Circumflex was normal. There were some plaque and calcif ication in the left main. RCA was very tortuous with about a 70% proximal and 90% mid RCA lesion. T he RCA was cannulated with a JR4 guide 6-Monegasque and a Sheldon wire was used to cross the lesion succes sfully. Angioplasty with a 2.5 x 15 Emerge balloon was done with multiple inflations up to 12 atmosp heres throughout the RCA proximal and mid. Angiography after the angioplasty was excellent with a 10 % residual proximally and 0% residual distally. Since patient is in need of rather urgent spinal daniela faina, I decided not to put a stent in. There was no dissection. SHAUN-3 flow, excellent result. The patient did receive some Plavix and aspirin and Angiomax during the procedure. There were no compli cations. Blood loss was 5 cc. Final Diagnoses: Coronary artery disease, status post successful angioplasty of the proximal and mid right coronary artery, 40% left anterior descending lesion. Plan: The plan is to discharge the patient on aspirin, Plavix, statin, beta blockers, and I think he can have his surgery within 1 month as far as this plan is concerned. The case was discussed with Chapito Marina. LANDON/DONN Voice ID: [id number] Report ID: [id number]
== END 2018-05-18 12:44 | disposition home or self-care (01) | DRG 251 ==
LOC: ER 10:29 → ERHOLD 11:45 → 4TH 14:15 → OBSVTOIN 05-17 08:54
PROVIDERS: ADMIT Family Medicine; ATTEND Family Medicine
PROC: 02703ZZ Dilation of Coronary Artery, One Artery, Percutaneous Approach (ICD-10-PCS; principal; 2018-05-17)
PROC: B201YZZ Plain Radiography of Multiple Coronary Arteries using Other Contrast (ICD-10-PCS; 2018-05-17)
DX: R07.9 Chest pain, unspecified (principal); E11.65 Type 2 diabetes mellitus with hyperglycemia; E66.9 Obesity, unspecified; E11.22 Type 2 diabetes mellitus with diabetic chronic kidney disease; I12.9 Hypertensive chronic kidney disease with stage 1 through stage 4 chronic kidney disease, or unspecified chronic kidney disease; N18.2 Chronic kidney disease, stage 2 (mild); M47.892 Other spondylosis, cervical region; Z68.36 Body mass index [BMI] 36.0-36.9, adult
CPT/HCPCS: 36415; 71045; 72156; 78452; 80048; 80061; 80076; 81003; 81015; 82962; 83036; 83735; 83880; 84484; 85025; 85347; 85610; 93005; 93017; 93306; 93454; 94760; 96361; 96372; 96374; 99285; A9500; A9577; C1725; C1893; G0378; J0360; J0583; J1170; J1650; J2250; J2785; J2930; J3010; J7030

== ENCOUNTER 2020-01-27 22:02 | Emergency (ER) | payer BC ==
[2020-01-27 22:38] LABS: Basophils % 0.8 % (0-1.3); Hematocrit 42.6 % (39.6-49.0); Lymphocytes % 19.8 % (15.3-44.8); MPV 9.5 fL (7.6-11.3); RBC Red Blood Cell Count 4.74 M/uL (4.33-5.43)
--- NOTE | 2020-01-27 22:55 | RAD REPORT ---
EXAM DESCRIPTION: [facility] Single View01/27/2020 10:39 pm CLINICAL HISTORY: Hypertension COMPARISON: 2017 FINDINGS: The lungs appear clear of acute infiltrate. The heart is normal size. The right hemidiaph ragm remains elevated IMPRESSION: No acute abnormalities displayed
[2020-01-27 23:04] LABS: Protime INR 1.03
[2020-01-27 23:39] LABS: ALT/SGPT 29 U/L (12-78); AST/SGOT 19 U/L (15-37); Albumin 3.5 g/dL (3.4-5.0); Alkaline Phosphatase 207 U/L (45-117); BUN Blood Urea Nitrogen 21 mg/dL (7-18); Bicarbonate 25 mmol/L (21-32); Bilirubin Direct 0.1 mg/dL (0-0.2); Bilirubin Total 0.5 mg/dL (0.2-1.0); Magnesium 2.1 mg/dL (1.8-2.4); NT PRO-BNP 160 pg/mL (<125); Protein, Total 7.6 g/dL (6.4-8.2); Sodium Level 131 mmol/L (136-145); Troponin (Emerg Dept Use Only) < 0.02 ng/mL (0.0-0.045)
[2020-01-27 23:41] LABS: Glucose Level 632 mg/dL (74-106)
[2020-01-28] MEDS ORDERED: INSULIN -REGULAR HUMAN 50 UNIT/0.5 ML ML ONE (00:15)
--- NOTE | 2020-01-28 01:44 | ER ---
Nurse's Notes [facility] Name: Sirisha Myles Jr Age: 69 yrs Sex: Male : 1950 Arrival Date: 01/27/2020 Time: 22:05 Bed 4 Private MD: Diagnosis: Diabetes with Hyperglycemia;Medication Noncompliance Presentation: 01/26 22:14 Chief complaint: Patient states: I quit taking my blood pressure medication and tl1 diabetes medication about 7 months ago because I figured I could control it myself. About 1 week ago I started to have fuzzy vision and felt unsteady. I went to the clinic today and my blood pressure and blood sugar were krystin. Coronavirus screen: Proceed with normal triage. Ebola Screen: Patient negative for fever greater than or equal to 101.5 degrees Fahrenheit, and additional compatible Ebola Virus Disease symptoms Patient denies exposure to infectious person. Patient denies travel to an Ebola-affected area in the 21 days before illness onset. Initial Sepsis Screen: Does the patient meet any 2 criteria? No. Patient's initial sepsis screen is negative. Does the patient have a suspected source of infection? No. Patient's initial sepsis screen is negative. Risk Assessment: Do you want to hurt yourself or someone else? Patient reports no desire to harm self or others. Onset of symptoms was January 20, 2020. 22:14 Method Of Arrival: Ambulatory tl1 22:14 Acuity: SIDRA 3 tl1 Historical: - Allergies: 22:17 No Known Allergies; tl1 - Home Meds: 22:17 None [Active]; tl1 - PMHx: 22:17 Diabetes - NIDDM; Kidney stones; tl1 - PSHx: 22:17 None; tl1 - Immunization history:: Adult Immunizations up to date. - Social history:: Smoking status: Patient denies any tobacco usage or history of. Patient/guardian denies using alcohol, street drugs. Screenin:15 Abuse screen: Denies threats or abuse. Denies injuries from another. Nutritional rr5 screening: No deficits noted. Tuberculosis screening: No symptoms or risk factors identified. Fall Risk IV access (20 points). Total Timmons Fall Scale indicates No Risk (0-24 pts). Assessment: 22:15 General: Appears in no apparent distress. comfortable, Behavior is calm, cooperative, rr5 appropriate for age, ED provider informed for the High sugar result. 22:15 Pain: Denies pain. Neuro: Level of Consciousness is awake, alert, obeys commands, rr5 Oriented to person, place, time, situation, Appropriate for age. Cardiovascular: Reports my BP is high and I stopped my medication 7 months ago Capillary refill < 3 seconds Patient's skin is warm and dry. Respiratory: Airway is patent Respiratory effort is even, unlabored, Respiratory pattern is regular, symmetrical. GI: Reports high sugar and I stopped my medication 7 months ago. : No signs and/or symptoms were reported regarding the genitourinary system. EENT: No signs and/or symptoms were reported regarding the EENT system. Derm: Skin is intact, is healthy with good turgor, Skin temperature is warm. Musculoskeletal: Circulation, motion, and sensation intact. Capillary refill < 3 seconds. 23:00 Reassessment: Patient appears in no apparent distress at this time. No changes from rr5 previously documented assessment. Patient is alert, oriented x 3, equal unlabored respirations, skin warm/dry/pink. awaiting for results. seen and examined by ED provider with order made and carried out. 01/27 00:10 Reassessment: Patient appears in no apparent distress at this time. Patient is alert, rr5 oriented x 3, equal unlabored respirations, skin warm/dry/pink. resting on semi fowlers position, no complaints made. 01:02 Reassessment: Patient appears in no apparent distress at this time. Patient is alert, rr5 oriented x 3, equal unlabored respirations, skin warm/dry/pink. repeat CBG 344 mg/dl ED provider informed with orders made. 01:35 Reassessment: ED provider informed for the CBG 254 mg/dl after the 2 liter NS infusion. rr5 Vital Signs: 01/26 22:16 BP 165 / 92; Pulse 95; Resp 17; Temp 98.2; Pulse Ox 100% ; Weight 107.05 kg; Height 5 tl1 ft. 8 in. (172.72 cm); Pain 0/10; 23:00 BP 141 / 75; Pulse 85; Resp 16; Pulse Ox 98% on R/A; rr5 01/27 00:00 BP 137 / 68; Pulse 90; Resp 16; Pulse Ox 99% ; rr5 01:00 BP 119 / 73; Pulse 84; Resp 17; Pulse Ox 98% ; rr5 01:35 BP 130 / 79; Pulse 84; Resp 16; Pulse Ox 99% ; rr5 0608 22:16 Body Mass Index 35.88 (107.05 kg, 172.72 cm) tl1 ED Course: 01/26 22:05 Patient arrived in ED. ds1 22:16 Triage completed. tl1 22:17 Arm band placed on right wrist. tl1 22:20 Patient has correct armband on for positive identification. Placed in gown. Bed in low rr5 position. Call light in reach. Side rails up X2. Pulse ox on. NIBP on. 22:20 Inserted saline lock: 20 gauge in right forearm, using aseptic technique. Blood rr5 collected. 22:23 Alvarez Granger RN is Primary Nurse. rr5 22:25 EKG done, by ED staff, reviewed by Dominick Null MD. rr5 22:30 Dominick Null MD is Attending Physician. mh7 22:40 XRAY Chest (1 view) In Process Unspecified. EDMS 01/27 01:41 Ana Phillips MD is Referral Physician. 7 02:01 No provider procedures requiring assistance completed. IV discontinued, intact, bleeding controlled, No redness/swelling at site. Administered Medications: 01/26 23:36 Drug: NS 0.9% 1000 ml Route: IV; Rate: 1000 ml; Site: right forearm; tl1 01/27 00:40 Follow up: Response: No adverse reaction; IV Status: Completed infusion; IV Intake: rr5 1000ml 00:10 Drug: Insulin Regular Human 10 units {Co-Signature: (Reshma Garrett).} Route: IVP; rr5 Site: right forearm; 02:02 Follow up: Response: No adverse reaction; Blood sugar is lowered 00:11 Drug: NS 0.9% 1000 ml Route: IV; Rate: 1 bolus; Site: right forearm; rr5 02:02 Follow up: Response: No adverse reaction; IV Status: Completed infusion Intake: 00:40 IV: 1000ml; Total: 1000ml. rr5 Outcome: 01:43 Discharge ordered by . 7 02:01 Discharged to home ambulatory. 02:01 Condition: stable 02:01 Discharge instructions given to patient, Instructed on discharge instructions, follow up and referral plans. medication usage, POC Demonstrated understanding of instructions, follow-up care, medications, POC Prescriptions given X 1. 02:02 Patient left the ED. Signatures: Dispatcher [employer] [facility] SandyJulia beltran 1 Elysia Whatley, RN RN tl1 Tami, [facility] Alvarez Granger RN RN rr5 Dominick Null MD MD 7 [facility]
--- NOTE | 2020-01-28 01:45 | EDPHYS ---
Physician Documentation [facility] Name: Sirisha Myles Jr Age: 69 yrs Sex: Male : 1950 Arrival Date: 01/27/2020 Time: 22:05 Bed 4 Private MD: ED Physician Dominick Null HPI: 01/27 00:20 This 69 yrs old Male presents to ER via Ambulatory with complaints of High mh7 Blood Sugar. 00:20 The patient or guardian reports hyperglycemia, polydipsia, polyuria, that was mh7 potentially precipitated by forgetting medications, with the patient's symptoms witnessed by no one, Treatment prior to arrival includes:. Onset: The symptoms/episode began/occurred 3 week(s) ago. Associated signs and symptoms: Pertinent negatives: anorexia, constipation, decreased urine output, diaphoresis, diarrhea, dry skin, hair loss, ketones in urine, nausea, seizure activity, skin flushing, urinary incontinence, vomiting. Current symptoms: In the emergency department the patient's symptoms are unchanged from the initial presentation. Historical: - Allergies: 01/26 22:17 No Known Allergies; tl1 - Home Meds: 22:17 None [Active]; tl1 - PMHx: 22:17 Diabetes - NIDDM; Kidney stones; tl1 - PSHx: 22:17 None; tl1 - Immunization history:: Adult Immunizations up to date. - Social history:: Smoking status: Patient denies any tobacco usage or history of. Patient/guardian denies using alcohol, street drugs. ROS: 01/27 00:20 Constitutional: Negative for fever, chills, and weight loss, Eyes: Negative for injury, mh7 pain, redness, and discharge, ENT: Negative for injury, pain, and discharge, Neck: Negative for injury, pain, and swelling, Cardiovascular: Negative for chest pain, palpitations, and edema, Respiratory: Negative for shortness of breath, cough, wheezing, and pleuritic chest pain, Abdomen/GI: Negative for abdominal pain, nausea, vomiting, diarrhea, and constipation, Back: Negative for injury and pain, MS/Extremity: Negative for injury and deformity, Skin: Negative for injury, rash, and discoloration, Neuro: Negative for headache, weakness, numbness, tingling, and seizure, Psych: Negative for depression, anxiety, suicide ideation, homicidal ideation, and hallucinations, Allergy/Immunology: Negative for hives, rash, and allergies, Hematologic/Lymphatic: Negative for swollen nodes, abnormal bleeding, and unusual bruising. Exam: 00:20 Constitutional: This is a well developed, well nourished patient who is awake, alert, mh7 and in no acute distress. Head/Face: Normocephalic, atraumatic. Eyes: Pupils equal round and reactive to light, extra-ocular motions intact. Lids and lashes normal. Conjunctiva and sclera are non-icteric and not injected. Cornea within normal limits. Periorbital areas with no swelling, redness, or edema. ENT: Nares patent. No nasal discharge, no septal abnormalities noted. Tympanic membranes are normal and external auditory canals are clear. Oropharynx with no redness, swelling, or masses, exudates, or evidence of obstruction, uvula midline. Mucous membranes moist. Neck: Trachea midline, no thyromegaly or masses palpated, and no cervical lymphadenopathy. Supple, full range of motion without nuchal rigidity, or vertebral point tenderness. No Meningismus. Chest/axilla: Normal chest wall appearance and motion. Nontender with no deformity. No lesions are appreciated. Cardiovascular: Regular rate and rhythm with a normal S1 and S2. No gallops, murmurs, or rubs. Normal PMI, no JVD. No pulse deficits. Respiratory: Lungs have equal breath sounds bilaterally, clear to auscultation and percussion. No rales, rhonchi or wheezes noted. No increased work of breathing, no retractions or nasal flaring. Abdomen/GI: Soft, non-tender, with normal bowel sounds. No distension or tympany. No guarding or rebound. No evidence of tenderness throughout. Back: No spinal tenderness. No costovertebral tenderness. Full range of motion. Skin: Warm, dry with normal turgor. Normal color with no rashes, no lesions, and no evidence of cellulitis. MS/ Extremity: Pulses equal, no cyanosis. Neurovascular intact. Full, normal range of motion. Neuro: Awake and alert, GCS 15, oriented to person, place, time, and situation. Cranial nerves II-XII grossly intact. Motor strength 5/5 in all extremities. Sensory grossly intact. Cerebellar exam normal. Normal gait. Psych: Awake, alert, with orientation to person, place and time. Behavior, mood, and affect are within normal limits. Vital Signs: 01/26 22:16 BP 165 / 92; Pulse 95; Resp 17; Temp 98.2; Pulse Ox 100% ; Weight 107.05 kg; Height 5 tl1 ft. 8 in. (172.72 cm); Pain 0/10; 23:00 BP 141 / 75; Pulse 85; Resp 16; Pulse Ox 98% on R/A; rr5 01/27 00:00 BP 137 / 68; Pulse 90; Resp 16; Pulse Ox 99% ; rr5 01:00 BP 119 / 73; Pulse 84; Resp 17; Pulse Ox 98% ; rr5 01:35 BP 130 / 79; Pulse 84; Resp 16; Pulse Ox 99% ; rr5 01/26 22:16 Body Mass Index 35.88 (107.05 kg, 172.72 cm) tl1 MDM: 01/26 23:19 Patient medically screened. mh7 01/27 01:39 Differential diagnosis: diabetes insipidus, DKA, hyperglycemia, medication [facility] noncompliance. Data reviewed: vital signs, nurses notes, lab test result(s), finger stick glucose, cardiac enzymes, CBC, electrolytes, urinalysis, EKG, radiologic studies. Data interpreted: surveillance monitor: rate is 84 beats/min, rhythm is normal sinus rhythm, regular, Interpretation: normal rate, normal rhythm, Pulse oximetry: on room air is 99 %. Interpretation: normal. Counseling: I had a detailed discussion with the patient and/or guardian regarding: the historical points, exam findings, and any diagnostic results supporting the discharge/admit diagnosis, lab results, radiology results, the need for outpatient follow up, to return to the emergency department if symptoms worsen or persist or if there are any questions or concerns that arise at home. Response to treatment: the patient's symptoms have resolved after treatment, the patient's blood pressure is in an acceptable range, mental status has returned to baseline, the patient no longer shows bradycardia, the patient is not short of breath, the patient is not tachycardic, the patient's pain is gone, the patient's temperature has normalized. 01/26 22:20 Order name: Basic Metabolic Panel; Complete Time: 23:55 tl1 01/26 22:20 Order name: CBC with Diff; Complete Time: 23:19 tl1 08 22:20 Order name: LFT's; Complete Time: 23:55 tl1 01/26 22:20 Order name: Magnesium; Complete Time: 23:55 tl1 01/26 22:20 Order name: NT PRO-BNP; Complete Time: 23:55 tl1 01/26 22:20 Order name: PT-INR; Complete Time: 23:19 tl1 01/26 22:20 Order name: Troponin (emerg Dept Use Only); Complete Time: 23:55 tl1 01/26 22:20 Order name: XRAY Chest (1 view); Complete Time: 23:19 tl1 01/26 22:24 Order name: Glucose; Complete Time: 23:19 rr5 01/26 22:29 Order name: Glucose, Ancillary Testing; Complete Time: 23:19 EDMS 01/27 00:03 Order name: Urine Dipstick--Ancillary (enter results) nv 01/27 01:10 Order name: Glucose, Ancillary Testing EDMS 01/27 01:43 Order name: Glucose, Ancillary Testing EDMS 01/26 22:20 Order name: EKG; Complete Time: 22:21 tl1 01/26 22:20 Order name: Cardiac monitoring; Complete Time: 22:24 tl1 01/26 22:20 Order name: EKG - Nurse/Tech; Complete Time: 22:24 tl1 01/26 22:20 Order name: IV Saline Lock; Complete Time: 22:24 tl1 01/26 22:20 Order name: Labs collected and sent; Complete Time: 22:24 tl1 01/26 22:20 Order name: O2 Per Protocol; Complete Time: 22:24 tl1 01/26 22:20 Order name: O2 Sat Monitoring; Complete Time: 22:24 tl1 01/26 23:20 Order name: Urine Dipstick-Ancillary (obtain specimen); Complete Time: 00:10 mh7 Administered Medications: 01/26 23:36 Drug: NS 0.9% 1000 ml Route: IV; Rate: 1000 ml; Site: right forearm; tl1 01/27 00:40 Follow up: Response: No adverse reaction; IV Status: Completed infusion; IV Intake: rr5 1000ml 00:10 Drug: Insulin Regular Human 10 units {Co-Signature: wh (Reshma Garrett).} Route: IVP; rr5 Site: right forearm; 02:02 Follow up: Response: No adverse reaction; Blood sugar is lowered 00:11 Drug: NS 0.9% 1000 ml Route: IV; Rate: 1 bolus; Site: right forearm; rr5 02:02 Follow up: Response: No adverse reaction; IV Status: Completed infusion Disposition: 01/28/20 01:43 Discharged to Home. Impression: Diabetes with Hyperglycemia, Medication Noncompliance. - Condition is Stable. - Discharge Instructions: Diabetes Mellitus and Food, Hyperglycemia, Wzbq-sa-Pabr, Tips for Eating Away From Home If You Have Diabetes, How to Avoid Diabetes Problems. - Prescriptions for Metformin 500 mg Oral Tablet - take 1 tablet by ORAL route 2 times per day for 15 days Then take 1 tablet with morning meals AND evening meals; 30 tablet. - Medication Reconciliation Form, Thank You Letter, Antibiotic Education, Prescription Opioid Use form. - Follow up: Private Physician; When: 1 - 2 days; Reason: Worsening of condition, Recheck today's complaints, Re-evaluation by your physician. Follow up: Ana Phillips MD; When: 1 - 2 days; Reason: Worsening of condition, Recheck today's complaints. - Problem is an ongoing problem. - Symptoms have improved. Signatures: Dispatcher [employer] EDMS Elysia Whatley RN RN tl1 Reshma Garrett Raymond, RN RN rr5 Dominick Null MD MD mh7 Reshma Garrett Corrections: (The following items were deleted from the chart) 02:02 01:43 01/28/2020 01:43 Discharged to Home. Impression: Diabetes with Hyperglycemia; Medication Noncompliance. Condition is Stable. Forms are Medication Reconciliation Form, Thank You Letter, Antibiotic Education, Prescription Opioid Use. Follow up: Private Physician; When: 1 - 2 days; Reason: Worsening of condition, Recheck today's complaints, Re-evaluation by your physician. Follow up: Ana Phillips; When: 1 - 2 days; Reason: Worsening of condition, Recheck today's complaints. Problem is an ongoing problem. Symptoms have improved. mh7
[2020-01-28 02:09] VITALS: TEMP 98.2
[2020-01-28 02:14] VITALS: BP 130/79; O2SAT 99
[2020-01-28 02:41] LABS: Urine Blood NEGATIVE (NEG); Urine Glucose 2+ (NEG); Urine Protein NEGATIVE (NEG); Urine Specific Gravity 1.015 (1.005-1.030); Urine pH 5.5 (5.0-7.0)
--- NOTE | 2020-01-28 06:35 | EKG ---
Test Date: 2020-01-27 Test Time: 22:15:47 Sales Representative Supervisor: IESHA MEASUREMENT RESULTS: Intervals: Rate: 93 AK: 212 QRSD: 86 QT: 348 QTc: 432 [place]: P: 19 AK: 212 QRS: 57 T: 62 INTERPRETIVE STATEMENTS: Sinus rhythm with 1st degree AV block Otherwise normal ECG Compared to ECG 05/15/2018 10:33:21 First degree AV block now present Electronically Signed On 01-28-20 06:34:24 CDT by Fabrice Ya
== END 2020-01-28 02:02 | disposition home or self-care (01) ==
LOC: ER 22:02
DX: E11.65 Type 2 diabetes mellitus with hyperglycemia (principal); Z91.14 Patient's other noncompliance with medication regimen; Z87.442 Personal history of urinary calculi
CPT/HCPCS: 36415; 71045; 80048; 80076; 81003; 82947; 83735; 83880; 84484; 85025; 85610; 93005; 96361; 96374; 99284

== ENCOUNTER 2022-04-17 20:15 | Inpatient (IN) | payer BC ==
--- OUTSIDE RECORDS SUMMARY | 2022-04-17 20:22 | XMS REPORT | Continuity of Care Document ---
:1950 Author Organization [facility] t Address [address] [place] [address] [address] [place] [address] Care Team Providers Name Role Phone Unavailable Unavailable Unavailable Problems This patient has no known problems. Allergies, Adverse Reactions, Alerts This patient has no known allergies or adverse reactions. Medications This patient has no known medications. Procedures This patient has no known procedures. Results Test Description Test Time Test Comments Results Result Comments Source SARS-CoV-2 (COVID-19), RT-PCR/TMA 2021-09-08 13:12:43 Test Item Value Reference Range Interpretation Comme nts SARS-CoV-2 INTERPRETATION NEGATIVE SEE NOTE S ARS-CoV-2 RNA NOT (test code = 21680) DETECTED Negative results do not preclude SARS-C oV-2 infection and should notb e used as the sole basis for patient management deci sions. Negativeresults must be combined with clinical o bservations, patient history ,and epidemiological information. Optimum specime n types and timingfor peak viral levels during infectio ns caused by SARS-CoV-2 have notbeen determined. Col lection of multiple specim ens or types ofspecimens may be necessary to detect virus. I mproper specimencollect ion and handling, sequence variab ility under primers/probes, or organism present below t he limit of detection may l ead to falsenegative r esults. Positive and negative pr edictive values oftesting are h ighly dependent on prevalence. False negative testresults are more likely when prevalence is h igh. SOURCE (test code = 74728) NOT SPECIFIED Note: Methodology is Abbe Maurice Real-Time RT-PCR. The expected result or reference range is NEGATI VE (Not Detected). For more information regarding COVID -19 testing to include clinica linformation, methodology det ail, intended use, FDA author ization andrecommended fact sheets for patients or hea lthcare providers, see [facility] Announcement: S ARS-CoV-2 (COVID-19) by Delaney SCHAFFER at URL below (note,fact shee ts are provided by method given in report:https:// www.[employer]/c linbarrie/ramya t-communications/ Alternatively, see downloadable PDF fact sheet at:https://www. [employer]/COVID -19-RT-PCR UNLE SS OTHERWISE INDICATED, ALL TESTING PERFORMED ATCLINICAL [facility], [facility]. [address] [place] [address] 4 HYDRAULIC MODELING ENGINEER: David MATT [id number] CAP ACCREDITATION N O. [id number]
[2022-04-17] MEDS ORDERED: MORPHINE 4 MG/ML SYR ONE (20:40)
[2022-04-17] MEDS ORDERED: ONDANSETRON 4 MG/2 ML VIAL ONE (20:40)
[2022-04-17 21:17] LABS: Absolute Lymphocytes (CBC) 0.5 K/uL (0.7-4.9); Hematocrit 35.4 % (39.6-49.0); Lymphocytes % 3.2 % (15.3-44.8); MCV 89.5 fL (80-100); MPV 8.9 fL (7.6-11.3); RBC Red Blood Cell Count 3.96 M/uL (4.33-5.43)
--- NOTE | 2022-04-17 21:24 | RAD REPORT ---
EXAM DESCRIPTION: RAD - Chest Single View - 04/17/2022 9:16 pm CLINICAL HISTORY: CHEST PAIN COMPARISON: Chest Single View dated 01/27/2020; Chest Single View dated 05/15/2018; Abdomen 1 View (KUB ) dated 10/13/2016 FINDINGS: Lines: None. Lungs: No evidence of edema or pneumonia. Pleural: No significant pleural effusions or pneumothorax. Cardiac: The heart size is within normal limits. Bones: No acute fractures. Other: IMPRESSION: No acute cardiopulmonary disease.
[2022-04-17 21:50] LABS: Albumin 3.4 g/dL (3.4-5.0); Bilirubin Direct 3.9 mg/dL (0-0.2); Potassium 5.5 mmol/L (3.5-5.1); Protein, Total 7.3 g/dL (6.4-8.2)
--- NOTE | 2022-04-17 22:23 | RAD REPORT ---
EXAM DESCRIPTION: US - Abdomen Exam Limited - 04/17/2022 10:16 pm CLINICAL HISTORY: ABD PAIN COMPARISON: Stone Protocol dated 09/05/2016 FINDINGS: The gallbladder demonstrates no gallstones. No pericholecystic fluid. Borderline gallbladd er wall thickening which is nonspecific. The common bile duct is normal measuring 4 mm. The liver demonstrates no findings of intrahepatic biliary dilatation. IMPRESSION: Negative for cholelithiasis or acute cholecystitis. No biliary duct dilatation.
[2022-04-17] MEDS ORDERED: PROMETHAZINE INJ 25 MG/ML AMP ONE (22:43)
[2022-04-17] MEDS ORDERED: INSULIN -REGULAR HUMAN 50 UNIT/0.5 ML ML ONE (23:42)
[2022-04-17 23:52] LABS: Protime INR 1.36
--- NOTE | 2022-04-18 01:12 | ER ---
Nurse's Notes [facility] Name: Sirisha Myles Jr Age: 71 yrs Sex: Male : 1950 Arrival Date: 04/17/2022 Time: 20:22 Bed 18 Private MD: Diagnosis: Upper abdominal pain, unspecified;Abnormal results of liver function studies Presentation: 04/17 20:30 Chief complaint: EMS states: Toned out for abdominal pain, Pt states he has been ll3 vomiting for 2 days and cant keep anything down, c/o epigastric pain 7/10, and nausea. 20:30 Coronavirus screen: Vaccine status: Patient reports receiving the 2nd dose of the covid ll3 vaccine. nausea, vomiting. Ebola Screen: No symptoms or risks identified at this time. Initial Sepsis Screen: Does the patient meet any 2 criteria? HR > 90 bpm. No. Patient's initial sepsis screen is negative. Does the patient have a suspected source of infection? No. Patient's initial sepsis screen is negative. Risk Assessment: Do you want to hurt yourself or someone else? Patient reports no desire to harm self or others. Onset of symptoms was April 15, 2022. Care prior to arrival: IV initiated. 20 GA, in the left antecubital area, Glucose check: 407 Oxygen administered. via nasal cannula. 20:30 Method Of Arrival: EMS: [facility] 3 20:30 Acuity: SIDRA 3 ll3 Triage Assessment: 20:30 General: Appears uncomfortable, ill, Behavior is calm, cooperative. Pain: Complains of ll3 pain in epigastric area Pain radiates to chest Pain currently is 7 out of 10 on a pain scale. Quality of pain is described as dull, heavy, sharp. Neuro: Level of Consciousness is awake, alert, obeys commands, Oriented to person, place, time, situation. GI: Abdomen is round non-distended, Reports nausea, vomiting, since X2 days. Derm: Skin is pink, warm \T\ dry. Historical: - Allergies: 20:30 No Known Allergies; ll3 - PMHx: 20:30 Diabetes - NIDDM; Kidney stones; ll3 - Immunization history:: Client reports receiving the 2nd dose of the Covid vaccine. - Social history:: Smoking status: Patient denies any tobacco usage or history of. Screenin:48 Abuse screen: Denies threats or abuse. Denies injuries from another. Nutritional ll3 screening: No deficits noted. Tuberculosis screening: No symptoms or risk factors identified. Fall Risk None identified. Assessment: 20:30 General: See triage assessment. ll3 20:30 GI: Bowel sounds present X 4 quads. Abd is soft. ll3 22:02 Reassessment: No changes from previously documented assessment. Patient and/or family ll3 updated on plan of care and expected duration. Pain level reassessed. Patient is alert, oriented x 3, equal unlabored respirations, skin warm/dry/pink. 22:04 Reassessment: Pt states nausea has not improved, Jeaneth CLIFFORD, notified. ll3 23:13 Reassessment: Patient and/or family updated on plan of care and expected duration. Pain ll3 level reassessed. Patient is alert, oriented x 3, equal unlabored respirations, skin warm/dry/pink. States pain is 6/10 Patient states symptoms have improved. 23:39 Reassessment: No changes from previously documented assessment. Patient and/or family ll3 updated on plan of care and expected duration. Pain level reassessed. Patient is alert, oriented x 3, equal unlabored respirations, skin warm/dry/pink. Patient states feeling better. 04/18 20:07 Reassessment: c/o 7/10 pain provided prn morphine 4 mg. Notified of room change, aa9 provided report to Padmaja ALVAREZ. pending transport. Vital Signs: 04/17 20:30 BP 137 / 87; Pulse 99; Resp 20; Temp 97.9(O); Pulse Ox 97% on R/A; Weight 129.27 kg ll3 (R); Height 5 ft. 8 in. (172.72 cm) (R); Pain 7/10; 21:15 BP 147 / 77; Pulse 97; Resp 21; Pulse Ox 96% on R/A; ll3 22:02 BP 144 / 88; Pulse 99; Resp 20; Pulse Ox 96% on R/A; ll3 22:45 BP 137 / 52; Pulse 98; Resp 22; Pulse Ox 96% on R/A; ll3 23:39 BP 119 / 89; Pulse 97; Resp 20; Pulse Ox 95% on R/A; ll3 04/18 01:30 BP 135 / 62; Pulse 95; Resp 22; Pulse Ox 95% on R/A; ll3 02:30 BP 123 / 68; Pulse 97; Resp 19; Pulse Ox 96% on R/A; ll3 03:01 BP 137 / 52; Pulse 96; Resp 19; Pulse Ox 95% on R/A; ll3 04/17 20:30 Body Mass Index 43.33 (129.27 kg, 172.72 cm) ll3 ED Course: 04/17 20:22 Patient arrived in ED. wm 20:22 [facility]C [facility] kb 20:22 Elias Tovar MD is Attending Physician. kb 20:30 Arm band placed on Patient placed in an exam room, on a stretcher, on pulse oximetry. ll3 20:30 No provider procedures requiring assistance completed. Maintain EMS IV. Dressing ll3 intact. Good blood return noted. Site clean \T\ dry. Gauge \T\ site: 20 G LAC. 21:11 Triage completed. ll3 21:18 XRAY Chest (1 view) In Process Unspecified. EDMS 22:18 US Abdomen Limited In Process Unspecified. EDMS 23:05 Abdomen In Process Unspecified. EDMS 23:48 Patient has correct armband on for positive identification. Bed in low position. Call ll3 light in reach. Side rails up X 1. 04/18 01:12 Surya Ann is Hospitalizing Provider. kb 02:57 Patient admitted, IV remains in place. ll3 03:07 Jones Pitts, RN is Primary Nurse. ll3 Administered Medications: 04/17 20:50 Drug: Zofran (Ondansetron) 4 mg Route: IVP; Site: left antecubital; ll3 04/18 02:14 Follow up: Response: No adverse reaction ll3 04/17 21:04 Drug: morphine 4 mg Route: IVP; Infused Over: 4 mins; Site: left antecubital; ll3 04/18 03:01 Follow up: BP 137 / 52; Pulse 96 bpm; Resp 19 bpm; Pulse Ox 95% RA; Response: No ll3 adverse reaction 04/17 22:44 Drug: Phenergan (promethazine) 12.5 mg Route: IVP; Site: left antecubital; ll3 04/18 02:14 Follow up: Response: No adverse reaction; Nausea is decreased ll3 04/17 23:35 Drug: Insulin Regular Human 5 units {Co-Signature: lg3 (Darshana Denton RN).} Route: IVP; ll3 Site: left antecubital; 04/18 02:13 Follow up: Response: No adverse reaction; Blood sugar is lowered ll3 01:40 Drug: Zosyn (piperacillin-tazobactam) 3.375 grams Route: IVPB; Infused Over: 60 mins; ll3 Site: left antecubital; 02:13 Follow up: Response: No adverse reaction; IV Status: Completed infusion; IV Intake: ll3 100ml Medication: 02:57 VIS not applicable for this client. ll3 Point of Care Testing: Blood Glucose: 00:18 Blood Glucose: 301 mg/dL; ll3 Ranges: Intake: 02:13 IV: 100ml; Total: 100ml. ll3 Outcome: 01:12 Decision to Hospitalize by Provider. kb 02:57 Admitted to ER Hold. Please see [facility] for further documentation. ll3 02:57 Condition: stable 02:57 Discharge instructions given to patient, Instructed on the need for admit, Demonstrated understanding of instructions. 20:45 Patient left the ED. aa9 Signatures: Dispatcher [employer] EDJeaneth Reyes, DARRIN-Kulwant CRONINP-Shaniqua Cain Lynsea RN RN ll3 Cheri Flores RN RN aa9 Darshana Denton RN lg3
--- NOTE | 2022-04-18 01:12 | EDPHYS ---
Physician Documentation [facility] Name: Sirisha Myles Jr Age: 71 yrs Sex: Male : 1950 Arrival Date: 04/17/2022 Time: 20:22 Bed 18 Private MD: ED Physician Elias Tovar HPI: 04/18 00:44 This 71 yrs old Male presents to ER via EMS with complaints of Abdominal Pain. kb 00:44 The patient presents with abdominal pain in the upper abdomen. Onset: The kb symptoms/episode began/occurred 2 day(s) ago. The symptoms do not radiate. Associated signs and symptoms: Pertinent positives: nausea and vomiting, shortness of breath. The symptoms are described as constant. Modifying factors: The symptoms are alleviated by nothing, the symptoms are aggravated by breathing deeply. Severity of pain: At its worst the pain was moderate in the emergency department the pain is unchanged. The patient has not experienced similar symptoms in the past. The patient has not recently seen a physician. Historical: - Allergies: 04/17 20:30 No Known Allergies; ll3 - PMHx: 20:30 Diabetes - NIDDM; Kidney stones; ll3 - Immunization history:: Client reports receiving the 2nd dose of the Covid vaccine. - Social history:: Smoking status: Patient denies any tobacco usage or history of. ROS: 04/18 00:43 Constitutional: Negative for fever, chills, and weight loss. kb Respiratory: Positive for shortness of breath. Abdomen/GI: Positive for abdominal pain, nausea and vomiting. All other systems are negative. Exam: 00:43 Constitutional: This is a well developed, well nourished patient who is awake, alert, kb and in no acute distress. Head/Face: Normocephalic, atraumatic. ENT: Moist Mucous membranes Cardiovascular: Regular rate and rhythm with a normal S1 and S2. No gallops, murmurs, or rubs. No pulse deficits. Respiratory: Respirations even and unlabored. No increased work of breathing. Talking in full sentences Skin: Warm, dry with normal turgor. Normal color. MS/ Extremity: Pulses equal, no cyanosis. Neurovascular intact. Full, normal range of motion. Neuro: Awake and alert, GCS 15, oriented to person, place, time, and situation. Moves all extremities. Normal gait. Psych: Awake, alert, with orientation to person, place and time. Behavior, mood, and affect are within normal limits. 00:43 Abdomen/GI: Inspection: abdomen appears normal, Bowel sounds: normal, in all quadrants, Palpation: soft, in all quadrants, moderate abdominal tenderness, in the epigastric area. 00:47 ECG was reviewed by the Attending Physician. kb Vital Signs: 04/17 20:30 BP 137 / 87; Pulse 99; Resp 20; Temp 97.9(O); Pulse Ox 97% on R/A; Weight 129.27 kg ll3 (R); Height 5 ft. 8 in. (172.72 cm) (R); Pain 7/10; 21:15 BP 147 / 77; Pulse 97; Resp 21; Pulse Ox 96% on R/A; ll3 22:02 BP 144 / 88; Pulse 99; Resp 20; Pulse Ox 96% on R/A; ll3 22:45 BP 137 / 52; Pulse 98; Resp 22; Pulse Ox 96% on R/A; ll3 23:39 BP 119 / 89; Pulse 97; Resp 20; Pulse Ox 95% on R/A; ll3 04/18 01:30 BP 135 / 62; Pulse 95; Resp 22; Pulse Ox 95% on R/A; ll3 02:30 BP 123 / 68; Pulse 97; Resp 19; Pulse Ox 96% on R/A; ll3 03:01 BP 137 / 52; Pulse 96; Resp 19; Pulse Ox 95% on R/A; ll3 04/17 20:30 Body Mass Index 43.33 (129.27 kg, 172.72 cm) ll3 MDM: 04/17 20:22 Patient medically screened. kb 04/18 00:43 Data reviewed: vital signs, nurses notes. Data interpreted: Pulse oximetry: on room air kb is 95 %. Interpretation: normal. 01:09 Counseling: I had a detailed discussion with the patient and/or guardian regarding: the kb historical points, exam findings, and any diagnostic results supporting the discharge/admit diagnosis, lab results, radiology results, the need for further work-up and treatment in the hospital. Physician consultation: Inder Oneill MD was contacted at 01:09, regarding consult, patient's condition, ok seeing the patient as long as GI backup is available. Dr Bermudez is airport operations crew member in the morning. Discussed with Dr Tovar and Kenisha. Recommends admission here and Kenisha will consult Aidan in the morning. . ED course: Pt is nontoxic in appearance and pain free at this time. . 04/17 20:23 Order name: Basic Metabolic Panel; Complete Time: 21:54 kb 04/17 20:23 Order name: CBC with Diff; Complete Time: 21:21 kb 04/17 20:23 Order name: LFT's; Complete Time: 21:54 kb 04/17 20:23 Order name: Troponin HS; Complete Time: 21:54 kb 04/17 20:23 Order name: Lipase; Complete Time: 21:54 kb 04/17 20:23 Order name: COVID-19 SARS RT PCR (Document "Date of Onset" if Symptomatic); Complete kb Time: 21:52 04/17 23:12 Order name: Protime (+inr); Complete Time: 23:52 kb 04/17 23:12 Order name: Ptt, Activated; Complete Time: 23:52 kb 04/18 00:31 Order name: Glucose, Ancillary Testing; Complete Time: 00:31 EDMS 04/18 01:11 Order name: Bates Screen Profile; Complete Time: 01:45 kb 04/18 04:08 Order name: Glucose, Ancillary Testing; Complete Time: 05:17 EDMS 04/18 04:43 Order name: CBC with Automated Diff; Complete Time: 05:17 EDMS 04/18 05:05 Order name: Hemoglobin A1c; Complete Time: 05:17 EDMS 04/18 05:18 Order name: Comprehensive Metabolic Panel; Complete Time: 05:25 EDMS 04/17 20:23 Order name: XRAY Chest (1 view); Complete Time: 21:52 kb 04/17 21:54 Order name: US Abdomen Limited; Complete Time: 22:39 kb 04/17 22:55 Order name: Abdomen EDMS 04/18 05:18 Order name: Lipid Profile; Complete Time: 05:25 EDMS 04/18 05:18 Order name: Magnesium; Complete Time: 05:25 EDMS 04/18 05:18 Order name: Amylase; Complete Time: 05:25 EDMS 04/18 05:18 Order name: Lipase; Complete Time: 05:25 EDMS 04/18 05:18 Order name: Thyroid Stimulating Hormone; Complete Time: 05:25 EDMS 04/18 07:59 Order name: Glucose, Ancillary Testing EDNC 04/18 10:33 Order name: MRI EDNC 04/18 13:43 Order name: Miscellaneous Test Lab EDNC 04/18 20:10 Order name: Transferrin Sat/Iron Binding EDNC 04/18 20:10 Order name: Ferritin EDMS 04/17 20:23 Order name: EKG; Complete Time: 20:24 kb 04/17 20:23 Order name: Cardiac monitoring; Complete Time: 21:04 kb 04/17 20:23 Order name: EKG - Nurse/Tech; Complete Time: 21:04 kb 04/17 20:23 Order name: IV Saline Lock; Complete Time: 21:04 kb 04/17 20:23 Order name: Labs collected and sent; Complete Time: 21:04 kb 04/17 20:23 Order name: O2 Per Protocol; Complete Time: 21:04 kb 04/17 20:23 Order name: O2 Sat Monitoring; Complete Time: 21:04 kb EC:47 Rate is 98 beats/min. Rhythm is regular. QRS [place] is Normal. FL interval is prolonged kb at 206 msec. QRS interval is normal at 96 msec. QT interval is normal at 449 msec. Administered Medications: 04/17 20:50 Drug: Zofran (Ondansetron) 4 mg Route: IVP; Site: left antecubital; [facility] 04/18 02:14 Follow up: Response: No adverse reaction [facility] 04/17 21:04 Drug: morphine 4 mg Route: IVP; Infused Over: 4 mins; Site: left antecubital; [facility] 04/18 03:01 Follow up: BP 137 / 52; Pulse 96 bpm; Resp 19 bpm; Pulse Ox 95% RA; Response: No 3 adverse reaction 04/17 22:44 Drug: Phenergan (promethazine) 12.5 mg Route: IVP; Site: left antecubital; [facility] 04/18 02:14 Follow up: Response: No adverse reaction; Nausea is decreased [facility] 04/17 23:35 Drug: Insulin Regular Human 5 units {Co-Signature: lg3 (Darshana Denton RN).} Route: IVP; 3 Site: left antecubital; 04/18 02:13 Follow up: Response: No adverse reaction; Blood sugar is lowered ll3 01:40 Drug: Zosyn (piperacillin-tazobactam) 3.375 grams Route: IVPB; Infused Over: 60 mins; ll3 Site: left antecubital; 02:13 Follow up: Response: No adverse reaction; IV Status: Completed infusion; IV Intake: ll3 100ml Point of Care Testing: Blood Glucose: 00:18 Blood Glucose: 301 mg/dL; ll3 Ranges: Critical Glucose Levels:Adult <50 mg/dl or >400 mg/dl <40 mg/dl or >180 mg/dl Disposition Summary: 04/18/22 01:12 Hospitalization Ordered Hospitalization Status: Inpatient Admission kb Provider: Surya Ann Condition: Stable kb Problem: new kb Symptoms: are unchanged kb Bed/Room Type: Standard kb Location: Telemetry/MedSurg (Inpatient)(04/18/22 18:57) bd Room Assignment: [facility](04/18/22 18:57) bd Diagnosis - Upper abdominal pain, unspecified kb - Abnormal results of liver function studies kb Forms: - Medication Reconciliation Form kb - SBAR form kb Signatures: Dispatcher [employer] EDMS Jeaneth Barth, VICE PRESIDENT INTEGRATED-C VICE PRESIDENT INTEGRATED-Ckb Trixie Arreola bd Manjula Vicente RN RN Jones Morin RN RN ll3 Yuridia Garcia PA PA sb3 Darshana Denton RN lg3 Corrections: (The following items were deleted from the chart) 04/17 22:55 21:22 Abdomen Pelvis W Con+CT.RAD.BRZ ordered. EDNC EDNC 04/18 01:27 01:12 Telemetry/MedSurg (Inpatient) kb mw 01:27 01:12 kb mw 18:57 01:27 BR ER HOLD mw bd 18:57 01:27 ERHOLD- mw bd
[2022-04-18] MEDS ORDERED: PIPERACIL/TAZO 3.375 GM VIAL IV ONE ×2 (01:35→08:10)
[2022-04-18] MEDS ORDERED: NA CHLORIDE 0.9% 100 ML ONE ×2 (01:35→08:10)
--- NOTE | 2022-04-18 01:44 | P.HP ---
Certification for Inpatient Patient admitted to: Inpatient With expected LOS: >2 Midnights Patient will require the following post-hospital care: None Practitioner: I am a practitioner with admitting privileges, knowledge of patient current condition, hospital course, and medical plan of care. Services: Services provided to patient in accordance with Admission requirements found in Title 42 Section 412.3 of the Code of Federal Regulations Patient History Date of Service: 04/18/22 Reason for admission: Abdominal Pain History of Present Illness: Patient is a 71-year-old male past medical history of insulin-dependent type 2 diabetes and hypertension who presented to the ED with complaints of epigastric abdominal pain and vomiting for 2 days. He states that he has not been able to hold anything down. His vital signs are stable upon arrival to the ER. His labs are significant for WBC 14.8, sodium 133, potassium 5.5, BUN 28, creatinine 1.9, glucose 359, AST 352, ALT 305, alk phos 305. Abdominal CT showed mild gallbladder distention but abdominal ultrasound did not show signs of cholecystitis or dilation of common bile duct. General surgery was and notified and is okay with patient staying here if GI is available in they are. Patient's symptoms resolved after Phenergan. He was also started on Zosyn. Patient is admitted for further evaluation and treatment. Allergies No Known Allergies Allergy (Verified 09/04/16 18:07) Home medications list reviewed: Yes Home Medications: Metoprolol Tartrate [Lopressor*] 50 mg PO BID #60 tab 09/04/16 Aspirin [Aspirin EC 81 MG] 81 mg pe PO DAILY 05/15/18 Metformin HCl [Metformin ER Osmotic] 1,000 mg PO BID 05/15/18 Multivitamin/Iron/Folic Acid [Centrum Adults Tablet] 1 tab PO DAILY 05/15/18 Atorvastatin Calcium [Lipitor] 40 mg PO BEDTIME #30 tab 05/18/18 Clopidogrel Bisulfate [Plavix] 75 mg PO DAILY #30 tablet 05/18/18 Gabapentin [Neurontin*] 400 mg PO BEDTIME #30 cap 05/18/18 Hydrocodone Bit/Acetaminophen [Wells 7.5-325 Tablet] 1 each PO Q6HR #12 tablet 05/18/18 lisinopriL [Prinivil*] 10 mg PO DAILY #30 tab 05/18/18 - Past Medical/Surgical History Diabetic: Yes -: Hypertension -: Type 2 Diabetes, Insulin-Dependent -: Appendectomy -: stents for kidney stones -: Back surgery x 2 Psychosocial/ Personal History: Patient lives alone. - Family History Mother -: Hypertension, Diabetes Father -: Hypertension, Diabetes - Social History Smoking Status: Never smoker Alcohol use: No CD- Drugs: No Caffeine use: No Place of Residence: Home Review of Systems Gastrointestinal: Nausea, Vomiting, Abdominal Pain Physical Examination - Physical Exam General: Alert, In no apparent distress, Obese HEENT: Atraumatic, PERRLA, EOMI, Sclerae nonicteric Neck: Supple, 2+ carotid pulse no bruit, No LAD, Without JVD or thyroid abnormality Respiratory: Clear to auscultation bilaterally, Normal air movement Cardiovascular: Regular rate/rhythm, Normal S1 S2 Gastrointestinal: Normal bowel sounds, Soft and benign, Non-distended, No tenderness Musculoskeletal: No tenderness Integumentary: No rashes Neurological: Normal gait, Normal speech, Normal strength at 5/5 x4 extr, Normal tone, Normal affect - Studies Laboratory Data (last 24 hrs) 04/17/22 23:29: PT 15.0 H, INR 1.36, APTT 22.3 L 04/17/22 20:54: WBC 14.80 H, Hgb 12.0 L, Hct 35.4 L, Plt Count 221 04/17/22 20:54: Sodium 133 L, Potassium 5.5 H, BUN 28 H, Creatinine 1.89 H, Glucose 359 H, Total Bilirubin 5.0 H, AST 352 H*, ALT 305 H*, Alkaline Phosphatase 285 H, Lipase 344 Assessment and Plan - Problems (Diagnosis) (1) Abdominal pain Current Visit: Yes Status: Acute Qualifiers: Abdominal location: epigastric Qualified Code(s): R10.13 - Epigastric pain (2) Elevated liver enzymes Current Visit: Yes Status: Acute (3) Hypertension Current Visit: Yes Status: Chronic Qualifiers: Hypertension type: primary hypertension Qualified Code(s): I10 - Essential (primary) hypertension (4) Leukocytosis Current Visit: Yes Status: Acute Qualifiers: Leukocytosis type: unspecified Qualified Code(s): D72.829 - Elevated white blood cell count, unspecified (5) Type 2 diabetes mellitus Current Visit: Yes Status: Chronic Qualifiers: Diabetes mellitus watermaster insulin use: with watermaster use Diabetes mellitus complication status: with hyperglycemia Qualified Code(s): E11.65 - Type 2 diabetes mellitus with hyperglycemia; Z79.4 - watermaster (current) use of insulin - Plan -NPO. Continue IV fluid -IV Zosyn -Morphine and Phenergan as needed -Patient has been hyperglycemic. q6h glucose checks with aggressive sliding scale. A1c ordered for tomorrow -General surgery and GI consult -Hepatitis panel ordered -Trend liver enzymes and white count. Lactic acid negative. -Patient denies any history of gallbladder or liver problems. Per chart review, his liver enzymes have been normal in the past -Monitor and replete electrolytes per protocol -Reconcile and continue home medications -Lovenox for VTE ppx -Full code Discharge Plan: Home Plan to discharge in: Greater than 2 days - Advance Directives Does patient have a Living Will: No Does patient have a Durable POA for Healthcare: No - Code Status/Comfort Care Code Status Assessed: Yes (Full) Critical Care: No Time Spent Managing Pts Care (In Minutes): 50
[2022-04-18] MEDS: NA CHLORIDE 0.9% 1,000 ML IV SCH ×3 (03:08→22:06)
[2022-04-18] MEDS ORDERED: NA CHLORIDE 0.9% 1,000 ML ONE ×2 (03:21→13:48)
[2022-04-18] MEDS: PROMETHAZINE INJ 25 MG/ML AMP IV PRN ×3 (03:23→23:18)
[2022-04-18] MEDS ORDERED: PROMETHAZINE INJ 25 MG/ML AMP ONE ×2 (03:24→13:54)
[2022-04-18 04:30] LABS: Hematocrit 34.4 % (39.6-49.0); Lymphocytes % 6.6 % (15.3-44.8); MCV 89.9 fL (80-100); MPV 8.7 fL (7.6-11.3); RBC Red Blood Cell Count 3.82 M/uL (4.33-5.43)
[2022-04-18] MEDS: INSULIN -REGULAR HUMAN 50 UNIT/0.5 ML ML SQ SCH ×5 (04:45→22:05)
[2022-04-18] MEDS ORDERED: INSULIN -REGULAR HUMAN 50 UNIT/0.5 ML ML ONE ×2 (04:50→08:10)
[2022-04-18 05:08] LABS: Albumin 3.1 g/dL (3.4-5.0); Magnesium 1.7 mg/dL (1.8-2.4); Potassium 5.2 mmol/L (3.5-5.1); Protein, Total 6.9 g/dL (6.4-8.2); Thyroid Stimulating Hormone 1.99 uIU/mL (0.360-3.740)
[2022-04-18] MEDS: MORPHINE 4 MG/ML SYR IV PRN ×2 (05:16→20:05)
[2022-04-18 05:17] LABS: Bilirubin Total 5.5 mg/dL (0.2-1.0)
[2022-04-18] MEDS ORDERED: MORPHINE 4 MG/ML SYR ONE ×2 (05:19→20:12)
[2022-04-18] MEDS ORDERED: ENOXAPARIN 40 MG/0.4 ML SQ ONE (08:10)
[2022-04-18] MEDS: ENOXAPARIN 40 MG/0.4 ML SQ SCH (08:21)
[2022-04-18] MEDS: PIPER TAZO 3.375 GM in NA CHLORIDE 0.9% 100 ML IV SCH ×2 (08:22→16:53)
--- NOTE | 2022-04-18 10:21 | EKG ---
Test Date: 2022-04-17 Test Time: 21:03:39 Sales Representative Door To Door: VERA MEASUREMENT RESULTS: Intervals: Rate: 98 [place]: 206 QRSD: 96 QT: 352 QTc: 449 [place]: P: 58 [place]: 206 QRS: 75 T: 63 INTERPRETIVE STATEMENTS: Normal sinus rhythm Normal ECG Compared to ECG 01/27/2020 22:15:47 First degree AV block no longer present Electronically Signed On 04-18-22 10:20:00 CDT by Fabrice Ya
--- NOTE | 2022-04-18 10:30 | RAD REPORT ---
EXAM DESCRIPTION: MRI - Cholangiogram - 04/18/2022 10:06 am CLINICAL HISTORY: abd pain COMPARISON: Abdomen Pelvis Wo Contrast dated 04/17/2022; Abdomen Exam Limited dated 04/17/2022 FINDINGS: Three-dimensional MRCP was performed using maximum intensity projection reconstruction on the same work station. Distended gallbladder with wall thickening and pericholecystic edema. The common bile duct is normal in caliber for the patient's age measuring 6 mm. No gallstones identified. Limited T2 sequences through the abdomen demonstrates no bulky adenopathy, significant free fluid or abscess. IMPRESSION: Distended gallbladder with borderline wall thickening. No intra or extrahepatic biliary ductal dilatation or evidence of choledocholithiasis.
--- NOTE | 2022-04-18 15:02 | RAD REPORT ---
EXAM DESCRIPTION: CT - Abdomen Pelvis Wo Contrast - 04/18/2022 6:53 am COMPARISON: None CLINICAL HISTORY: Abdominal pain TECHNIQUE: Multiple helical axial images were obtained through the abdomen and pelvis without intrav enous contrast. Sagittal and coronal reformatted images are reviewed as well. All CT scans at this facility use dose modulation, iterative reconstruction, and/or weight-based dosi ng when appropriate to reduce radiation dose to as low as reasonably achievable. FINDINGS: Lung bases: Coronary artery calcifications are noted. There is mild dependent atelectasis. Liver: Homogenous attenuation is demonstrated. Gallbladder/biliary: Gallbladder appears mildly distended. There is trace stranding adjacent to the g allbladder. No obvious calcified gallstones. No significant biliary ductal dilatation. Pancreas: Unremarkable. Spleen: Unremarkable. Adrenals: Unremarkable. Kidneys and ureters: There is a 3 mm stone in the upper pole of the right kidney. No obstructing uret eral stone. No evidence of hydronephrosis. There is nonspecific bilateral symmetric perinephric fat s tranding. Bladder: Unremarkable. Pelvic organs: Unremarkable. Bowel: Colonic diverticula are present. No evidence of bowel obstruction. No bowel wall thickening. A ppendix is not well-seen. Peritoneum: No free air. No significant free fluid. Lymph nodes: Unremarkable. Vasculature: Aortoiliac and femoral atherosclerosis is noted. Soft tissues: Unremarkable. Bones: Degenerative changes of the lumbar spine are present. IMPRESSION: 1. Mildly distended gallbladder with possible trace adjacent inflammatory change which c ould be related to acute cholecystitis, consider follow-up ultrasound. 2. Small nonobstructing right renal stone. 3. Colonic diverticulosis. Electronically signed by: Eduardo Khan MD 04/17/2022 11:37 PM CDT Due to temporary technical issues with the PACS/Fluency reporting system, reports are being signed by the in house radiologists without review as a courtesy to insure prompt reporting. The interpreting radiologist is fully responsible for the content of the report.
--- NOTE | 2022-04-18 17:10 | P.PN ---
Date of Service: 04/18/22 Patient seen and examined. He denies any abdominal pain at the moment. Total bilirubin trended up but AST ALT trended down from yesterday. Diagnosis: Cholelithiasis. Elevated LFT Plan: MRCP shows normal caliber CBD, no CBD stone. Case discussed with GI-Dr. Bermudez who recommended monitoring here. Follow hepatitis profile. General surgery consulted. Obtain HIDA scan to rule out acute cholecystitis. Empiric antibiotics. Monitor LFT.
[2022-04-18 20:09] LABS: Ferritin 371.8 ng/mL (26-388)
--- NOTE | 2022-04-18 21:07 | P.PN ---
Date of Service: 04/19/22 Subjective: abdominal pain improved no nausea/vomiting reports itching "all over" since yesterday ROS: 10 point ROS as noted above, otherwise negative Physical Exam: Gen: NAD, AOx3 HEENT: normal conjunctiva, +scleral icterus CV: regular rate & rhythm, no edema Pulm: non-labored respirations, clear bilaterally Abd: soft, minimal tenderness in RUQ, non-distended Neuro: normal speech, normal affect, moves all extremities vitals reviewed Problem List hyperbilirubinemia elevated transaminases IDDM2 HTN SHAHANA on CKDIII CT abd: distended gallbladder RUQ U/S: negative for cholelithiasis or acute cholecystitis. No biliary duct dilatation. s/p MRCP - normal CBD, no CBD stone; +distended GB with wall thickening, no evidence of cholelithiasis GI consulted, general surgery consulted - continue medical management / support hepatitis profile / workup ordered/sent HIDA scan ordered - resulted today with high concern for obstruction. Most likely due to a stricture continue empiric antibiotics - zosyn clear liquid diet per GI, continue IVF initiated transfer this evening once HIDA results came back ~4pm Updated patient SHAHANA, unclear etiology, possibly prerenal; continue IVF, renal consulted no obstructing stone, no hydro noted on imaging VTE: lovenox Code: Full Dispo: initiated transfer to tertiary care center needs ERCP Time Spent Managing Pts Care (In Minutes): 35
--- NOTE | 2022-04-18 21:22 | CON ---
Date of Consultation: 04/18/2022 Brief History Of Present Illness: Patient is a 71-year-old male with a past medical history of diabe shannan and hypertension, who presents to the ER with complaints of epigastric abdominal pain and vomitin g beginning 2 days prior. He states that he only had this predominant vomiting more than anything el se and he is not sure if his abdominal pain was due to his retching, but it did not appear to be prim saima abdominal pain. He is currently completely asymptomatic in the ER. He had some mild nausea prio r but over the course of several hours he is completely asymptomatic. He is pain free and has been e ssentially pain free without the vomiting since being at the ER. He has never had similar episodes b efore in the past. Denies any sick contacts. No recent travel. No new food exposures. He is unawa re of any hepatitis or hepatitis type exposures in the past. He has never had a surgical interventio n or been recommended to have any surgical intervention for any biliary disease in the past. He cherie es alcohol as well. He is currently asymptomatic during my examination. Has no pain, no nausea, no vomiting. Feels quite well. Past Medical History: As described above, diabetes, hypertension, nephrolithiasis. Past Surgical History: Includes only appendectomy, kidney stents, back surgery x2. Family History: His parents had diabetes. He denies smoking, alcohol, or recreational drug use Review of Systems: Ten-point review of systems other than HPI, currently denies. Home Medications: Include metoprolol, aspirin, metformin, Centrum, Lipitor, Plavix, Neurontin, [place] , Prinivil. Allergies: NO KNOWN DRUG ALLERGIES. I ASKED THE PATIENT WHY HE TAKES PLAVIX. HE CANNOT REMEMBER AND HE SAYS HE THINKS IT WAS RELATED TO HIS BLOOD PRESSURE, BUT IT IS UNCLEAR ON AT THIS TIME. Physical Examination: Vital Signs: At the time of my examination, he is 5 feet 8 inches, 284 pounds. His vital signs were blood pressure 102/69, pulse is 87, respiratory rate 17, temperature 97.7, SpO2 98% on room air. General: He is awake, alert, and oriented. Psychiatric: He is appropriate and conversive. HEENT: Normocephalic. His sclerae were slightly icteric and jaundiced. He did have some subungual jaundice as well. Neck: Otherwise, supple without JVD. Chest: Normal expansion and excursion. Cardiovascular: Regular rate and rhythm. Pulmonary: Clear to auscultation bilaterally. Abdomen: Soft, nontender, nondistended. No rebound. No guarding. No focal peritonitis. Negative Mckeon sign. Extremities: No clubbing, cyanosis, or edema. Skin: Warm and dry. Laboratory Exam: Revealed a white blood cell count of 14.8, hemoglobin is 12.0, hematocrit of 35.4, platelet count was 221, neutrophils are 88%. His PT 15.0, INR 1.36, PTT is 22.3. Sodium 133, potass ium 5.5, chloride 102, carbon dioxide 22, BUN 28, creatinine 1.8, glucose is 359, calcium 8.9. His b ilirubin was 5.0 on admission, now 5.5, his direct component was 3.9, AST was 352 on admission, now 2 44. ALT 305 on admission, now 260. Alkaline phosphatase was 285, now 255. Troponin was 17 high sen sitivity, which is normal range. Ceruloplasmin is currently pending. Hepatitis panel is currently p ending. COVID was negative. He had imaging performed, which included abdomen and pelvis CT on 04/17, officially read as mildly distended gallbladder with possible trace adjacent inflammatory rowan ge which could be related to cholecystitis. Consider followup ultrasound. Small obstructing right r enal stone and colonic diverticulosis. He had an abdominal ultrasound performed as well which was of ficially read as negative for cholelithiasis or acute cholecystitis. No biliary ductal dilatation. The gallbladder demonstrates no gallstones, no pericholecystic fluid, borderline gallbladder wall thi ckening which is nonspecific. Common bile duct is normal measuring 4 mm. The liver demonstrates no findings of intrahepatic biliary ductal dilatation. He had an MRCP performed as well which was offic ially read as distended gallbladder with borderline wall thickening. No intra or extrahepatic biliar y ductal dilatation. No evidence of choledocholithiasis. I have personally reviewed the imaging wit h Dr. Armando and there is no evidence of Mirizzi syndrome, stones, or any other obstructive process to a ccount for this degree of transaminase elevation at least visually on the CT and the MRCP, and abdomi nal ultrasound. Assessment And Plan: This is a 71-year-old male who presented with nausea and vomiting predominantly and some abdominal pain, now symptoms resolved and he has significant elevation of his liver transam inases. 1.IV fluid hydration. 2.Dr. Bermudez, brick grader is consulted to see the patient for consultation. Await Dr. Artem arteaga's input. 3.I do not find that the patient has evidence of acute cholecystitis at this time given his clinical picture and he is currently asymptomatic with worsening liver function tests and a nontender abdomen and MRCP did not show any signs of acute cholecystitis to corroborate his physical exam. As such, I will await Dr. Bermudez's input. Should the diagnosis be not forthcoming, I will recommend a HIDA s can to assist in the patient's workup. 4.Serial abdominal exams. 5.Continue medical management. 6.I will follow along with you. I have explained the risks, benefits, and alternatives of the above stated plan. The patient agrees to proceed as indicated. MAXIME/DONN Voice ID: [id number] Report ID: [id number]
[2022-04-18] MEDS ORDERED: FENTANYL CITR 100 MCG/2 ML IV ONE (22:32)
[2022-04-18] MEDS ORDERED: DIPHENHYDRAMINE 25 MG TAB/CAP PO ONE (22:32)
[2022-04-18 22:33] VITALS: BMI 43.3
[2022-04-19] MEDS: PIPER TAZO 3.375 GM in NA CHLORIDE 0.9% 100 ML IV SCH ×3 (02:23→17:16)
[2022-04-19 03:44] LABS: Absolute Lymphocytes (CBC) 0.7 K/uL (0.7-4.9); Lymphocytes % 6.2 % (15.3-44.8); MPV 9.1 fL (7.6-11.3); RBC Red Blood Cell Count 3.67 M/uL (4.33-5.43)
[2022-04-19 04:27] LABS: Albumin 2.9 g/dL (3.4-5.0); Bilirubin Direct 4.9 mg/dL (0-0.2); Magnesium 1.9 mg/dL (1.8-2.4); Potassium 5.5 mmol/L (3.5-5.1); Protein, Total 6.6 g/dL (6.4-8.2)
[2022-04-19 04:38] LABS: Bilirubin Total 5.7 mg/dL (0.2-1.0)
[2022-04-19] MEDS: INSULIN -REGULAR HUMAN 50 UNIT/0.5 ML ML SQ SCH ×4 (07:30→21:00)
--- NOTE | 2022-04-19 08:08 | P.CNS ---
Date of Consult: 04/19/22 Reason for Consult: SHAHANA Requesting Physician: Alvarez Parkinson Chief Complaint: Abdominal Pain History of Present Illness: Patient is a 71-year-old male past medical history of insulin-dependent type 2 diabetes and hypertension who presented to the ED with complaints of epigastric abdominal pain and vomiting for 2 days. He states that he has not been able to hold anything down. His vital signs are stable upon arrival to the ER. His labs are significant for WBC 14.8, sodium 133, potassium 5.5, BUN 28, creatinine 1.9, glucose 359, AST 352, ALT 305, alk phos 305. Abdominal CT showed mild gallbladder distention but abdominal ultrasound did not show signs of cholecystitis or dilation of common bile duct. General surgery was and notified and is okay with patient staying here if GI is available in they are. Patient's symptoms resolved after Phenergan. He was also started on Zosyn. Patient is admitted for further evaluation and treatment. He denies any difficulties with urination. Reports taking Aleve 2 tabs twice daily for the last three years. 00:44 This 71 yrs old Male presents to ER via EMS with complaints of Abdominal Pain. kb 00:44 The patient presents with abdominal pain in the upper abdomen. Onset: The kb symptoms/episode began/occurred 2 day(s) ago. The symptoms do not radiate. Associated signs and symptoms: Pertinent positives: nausea and vomiting, shortness of breath. The symptoms are described as constant. Modifying factors: The symptoms are alleviated by nothing, the symptoms are aggravated by breathing deeply. Severity of pain: At its worst the pain was moderate in the emergency department the pain is unchanged. The patient has not experienced similar symptoms in the past. The patient has not recently seen a physician. Allergies No Known Allergies Allergy (Verified 09/04/16 18:07) Home medications list reviewed: Yes Home Medications: Metoprolol Tartrate [Lopressor*] 50 mg PO BID #60 tab 09/04/16 Aspirin [Aspirin EC 81 MG] 81 mg pe PO DAILY 05/15/18 Metformin HCl [Metformin ER Osmotic] 1,000 mg PO DAILY 05/15/18 Multivitamin/Iron/Folic Acid [Centrum Adults Tablet] 1 tab PO DAILY 05/15/18 Atorvastatin Calcium [Lipitor] 40 mg PO BEDTIME #30 tab 05/18/18 Clopidogrel Bisulfate [Plavix] 75 mg PO DAILY #30 tablet 05/18/18 Gabapentin [Neurontin*] 400 mg PO BEDTIME #30 cap 05/18/18 lisinopriL [Prinivil*] 10 mg PO DAILY #30 tab 05/18/18 Hydrocodone Bit/Acetaminophen [[place]er 7.5-325 Tablet] 1 each PO Q6HR PRN 04/18/22 Losartan Potassium [Cozaar] 25 mg PO DAILY 04/18/22 - Past Medical/Surgical History Diabetic: Yes -: Hypertension -: Type 2 Diabetes, Insulin-Dependent -: CKD III with proteinuria (Dr. Carpio) -: Nephrolithiasis -: CAD/ PAD -: HLD -: Appendectomy -: stents for kidney stones -: Back surgery x 2 Psychosocial/ Personal History: Patient lives alone. - Family History Mother Medical History: Hypertension, Diabetes Father Medical History: Hypertension, Diabetes - Social History Alcohol use: No CD- Drugs: No Caffeine use: No Place of Residence: Home Review of Systems 10-point ROS is otherwise unremarkable General: Weakness, Malaise Physical Examination Temp Pulse Resp BP Pulse Ox 98.5 F 98 H 20 106/54 L 93 04/19/22 04:00 04/19/22 04:00 04/19/22 04:00 04/19/22 04:00 04/19/22 04:00 General: In no apparent distress, Oriented x3, Cooperative HEENT: Atraumatic Neck: Supple Respiratory: Clear to auscultation bilaterally Cardiovascular: No edema, Regular rate/rhythm Gastrointestinal: Soft and benign, Non-distended Musculoskeletal: No clubbing, No contractures Integumentary: No rashes, No cyanosis Neurological: Normal speech Blood work reviewed in the chart. Imagings Data: EXAM DESCRIPTION: RAD - Chest Single View - 04/17/2022 9:16 pm CLINICAL HISTORY: CHEST PAIN COMPARISON: Chest Single View dated 01/27/2020; Chest Single View dated 05/15/2018; Abdomen 1 View (KUB) dated 10/13/2016 FINDINGS: Lines: None. Lungs: No evidence of edema or pneumonia. Pleural: No significant pleural effusions or pneumothorax. Cardiac: The heart size is within normal limits. Bones: No acute fractures. Other: IMPRESSION: No acute cardiopulmonary disease. EXAM DESCRIPTION: CT - Abdomen Pelvis Wo Contrast - 04/18/2022 6:53 am COMPARISON: None CLINICAL HISTORY: Abdominal pain TECHNIQUE: Multiple helical axial images were obtained through the abdomen and pelvis without intravenous contrast. Sagittal and coronal reformatted images are reviewed as well. All CT scans at this facility use dose modulation, iterative reconstruction, and/or weight-based dosing when appropriate to reduce radiation dose to as low as reasonably achievable. FINDINGS: Lung bases: Coronary artery calcifications are noted. There is mild dependent atelectasis. Liver: Homogenous attenuation is demonstrated. Gallbladder/biliary: Gallbladder appears mildly distended. There is trace stranding adjacent to the gallbladder. No obvious calcified gallstones. No significant biliary ductal dilatation. Pancreas: Unremarkable. Spleen: Unremarkable. Adrenals: Unremarkable. Kidneys and ureters: There is a 3 mm stone in the upper pole of the right ki dney. No obstructing ureteral stone. No evidence of hydronephrosis. There is nonspecific bilateral symmetric perinephric fat stranding. Bladder: Unremarkable. Pelvic organs: Unremarkable. Bowel: Colonic diverticula are present. No evidence of bowel obstruction. No bowel wall thickening. Appendix is not well-seen. Peritoneum: No free air. No significant free fluid. Lymph nodes: Unremarkable. Vasculature: Aortoiliac and femoral atherosclerosis is noted. Soft tissues: Unremarkable. Bones: Degenerative changes of the lumbar spine are present. IMPRESSION: 1. Mildly distended gallbladder with possible trace adjacent inflammatory change which could be related to acute cholecystitis, consider follow-up ultrasound. 2. Small nonobstructing right renal stone. 3. Colonic diverticulosis. Conclusions/Impression: SHAHANA in the setting of excessive NSAIDs and Lisinopril CKD III with proteinuria -No NSAIDs; Counseled the patient regarding NSAIDs -Hold Lisinopril -Continue gentle IVF Hyponatremia -Continue IVF with NS Hyperkalemia -Continue IVF with NS -Low potassium diet Nephrolithiasis, non-obstructing -Maintain hydration HTN with CKD -Hold Lisinopril -Restart Metoprolol due to tachycardia DM II with CKD, Polyneuropathy and Hyperglycemia -RISS Hypoalbuminemia -Advance nutrition as tolerated Anemia in chronic illness Iron Deficiency 15% -Monitor H&H -Consider IV iron Case reviewed with Dr. Parkinson Thank you kindly for the referral
[2022-04-19 09:30] LABS: Specific Gravity 1.025 (1.005-1.030); Urine Blood 1+ (Negative); Urine Clarity Slightly Cloudy (Clear); Urine Color Orange (Yellow); Urine Glucose Negative (Negative); Urine Protein 2+ (Negative)
[2022-04-19 09:38] LABS: Urine Bilirubin 3+ (Negative)
[2022-04-19] MEDS: ENOXAPARIN 40 MG/0.4 ML SQ SCH (09:55)
[2022-04-19] MEDS: NA CHLORIDE 0.9% 1,000 ML IV SCH ×2 (09:55→16:57)
[2022-04-19 11:33] LABS: Urine Bacteria 20-50 /HPF (<20); Urine RBC <5 /HPF (None Seen)
--- NOTE | 2022-04-19 15:25 | RAD REPORT ---
EXAM DESCRIPTION: NM - Hepatobiliary System Imagin - 04/19/2022 2:12 pm CLINICAL HISTORY: evaluate for cholecystitis COMPARISON: Abdomen Pelvis Wo Contrast dated 04/17/2022; Cholangiogram dated 04/18/2022 TECHNIQUE: The patient was administered approximately 7 mCi Tc99m Choletec. Imaging of the right upp er quadrant was performed initially for up to 60 minutes. A delay image was obtained at 120 minutes. FINDINGS: Normal hepatic uptake is identified. No uptake is present within the intrahepatic bile ivon ts, extrahepatic bile ducts, or gallbladder. A 2 hour post injection did demonstrate some radiotracer within the duodenum. IMPRESSION: Nonvisualized gallbladder and biliary ducts which would indicate biliary obstruction. Ra diotracer uptake was seen in the small bowel at 2 hours but not before. This would exclude a complete obstruction though the degree of obstruction is likely high-grade. The intra and extrahepatic bile d ucts and gallbladder were never visualized. ERCP could be considered for further evaluation.
[2022-04-19] MEDS: METOPROLOL TAR 25 MG TAB PO SCH (17:34)
[2022-04-19 18:56] LABS: Specific Gravity 1.025 (1.005-1.030); Urine Bilirubin 2+ (Negative); Urine Blood 2+ (Negative); Urine Clarity Turbid (Clear); Urine Color Dark-Yellow (Yellow); Urine Crystals Unidentified Few /HPF (None Seen); Urine Glucose TRACE (Negative); Urine Mucus Slight /HPF (None Seen); Urine Protein 1+ (Negative); Urine RBC <5 /HPF (None Seen); Urine Urobilinogen 1+ (Normal); Urine WBC Clump Occasional /HPF (None Seen); Urine pH 5.5 (5.0-7.0)
[2022-04-20] MEDS: PIPER TAZO 3.375 GM in NA CHLORIDE 0.9% 100 ML IV SCH ×2 (02:09→09:30)
[2022-04-20 02:45] LABS: UR PROTEIN 78.4 mg/dL (<11.9); Urine Protein/Creatinine Ratio 0.38 ratio (<0.15)
[2022-04-20 02:53] LABS: Specific Gravity 1.024 (1.005-1.030); Urine Bilirubin 1+ (Negative); Urine Blood Trace (Negative); Urine Clarity Turbid (Clear); Urine Color Dark-Yellow (Yellow); Urine Glucose TRACE (Negative); Urine Protein 1+ (Negative); Urine RBC <5 /HPF (None Seen); Urine Urobilinogen 1+ (Normal); Urine pH 5.5 (5.0-7.0)
[2022-04-20 04:04] LABS: Absolute Lymphocytes (CBC) 1.1 K/uL (0.7-4.9); Hematocrit 29.2 % (39.6-49.0); Lymphocytes % 17.8 % (15.3-44.8); MCV 89.1 fL (80-100); MPV 8.9 fL (7.6-11.3); RBC Red Blood Cell Count 3.28 M/uL (4.33-5.43)
[2022-04-20 04:16] LABS: Albumin 2.4 g/dL (3.4-5.0); Bilirubin Total 3.9 mg/dL (0.2-1.0); Magnesium 1.9 mg/dL (1.8-2.4); Phosphorus 1.1 mg/dL (2.5-4.9); Potassium 4.5 mmol/L (3.5-5.1); Uric Acid 7.7 mg/dL (3.5-7.2)
[2022-04-20] MEDS: METOPROLOL TAR 25 MG TAB PO SCH (05:55)
--- NOTE | 2022-04-20 06:41 | P.PN ---
Date of Service: 04/20/22 Subjective: ROS: 10 point ROS as noted above, otherwise negative Physical Exam: Gen: NAD, AOx3 HEENT: normal conjunctiva, +scleral icterus CV: regular rate & rhythm, no edema Pulm: non-labored respirations, clear bilaterally Abd: soft, minimal tenderness in RUQ, non-distended Neuro: normal speech, normal affect, moves all extremities vitals reviewed Problem List hyperbilirubinemia elevated transaminases IDDM2 HTN SHAHANA on CKDIII CT abd: distended gallbladder RUQ U/S: negative for cholelithiasis or acute cholecystitis. No biliary duct dilatation. s/p MRCP - normal CBD, no CBD stone; +distended GB with wall thickening, no evidence of cholelithiasis GI consulted, general surgery consulted - continue medical management / support hepatitis profile / workup ordered/sent HIDA scan ordered - resulted today with high concern for obstruction. Most likely due to a stricture continue empiric antibiotics - zosyn clear liquid diet per GI, continue IVF initiated transfer this evening once HIDA results came back ~4pm Updated patient SHAHANA, unclear etiology, possibly prerenal; continue IVF, renal consulted no obstructing stone, no hydro noted on imaging VTE: lovenox Code: Full Dispo: initiated transfer to tertiary care center needs ERCP Time Spent Managing Pts Care (In Minutes): 35
[2022-04-20] MEDS: INSULIN -REGULAR HUMAN 50 UNIT/0.5 ML ML SQ SCH ×3 (07:30→16:24)
[2022-04-20] MEDS ORDERED: ENOXAPARIN 30 MG/0.3 ML SQ SCH (09:00)
[2022-04-20 09:27] VITALS: O2SAT 93
[2022-04-20] MEDS ORDERED: SODIUM PHOSPHATE 10 MM in NA CHLORIDE 0.9% 250 ML IV ONE (11:00)
--- NOTE | 2022-04-20 11:43 | P.PN ---
Date of Service: 04/20/22 (S) Pt denies any abdominal pain, nausea, dyspnea or CP. Remains on IVF and Abx (O) Vitals reviewed in the EMR General: In no apparent distress, Oriented x3, Cooperative HEENT: Atraumatic Neck: Supple Respiratory: Clear to auscultation bilaterally Cardiovascular: No edema, Regular rate/rhythm Gastrointestinal: Soft and benign, obese but Non-distended and NT Musculoskeletal: No clubbing, No contractures, no edema Integumentary: No rashes, No cyanosis Neurological: Normal speech Labs reviewed in the EMR Imagings Data: EXAM DESCRIPTION: RAD - Chest Single View - 04/17/2022 9:16 pm CLINICAL HISTORY: CHEST PAIN COMPARISON: Chest Single View dated 01/27/2020; Chest Single View dated 05/15/2018; Abdomen 1 View (KUB) dated 10/13/2016 FINDINGS: Lines: None. Lungs: No evidence of edema or pneumonia. Pleural: No significant pleural effusions or pneumothorax. Cardiac: The heart size is within normal limits. Bones: No acute fractures. Other: IMPRESSION: No acute cardiopulmonary disease. EXAM DESCRIPTION: CT - Abdomen Pelvis Wo Contrast - 04/18/2022 6:53 am COMPARISON: None CLINICAL HISTORY: Abdominal pain TECHNIQUE: Multiple helical axial images were obtained through the abdomen and pelvis without intravenous contrast. Sagittal and coronal reformatted images are reviewed as well. All CT scans at this facility use dose modulation, iterative reconstruction, and/or weight-based dosing when appropriate to reduce radiation dose to as low as reasonably achievable. FINDINGS: Lung bases: Coronary artery calcifications are noted. There is mild dependent atelectasis. Liver: Homogenous attenuation is demonstrated. Gallbladder/biliary: Gallbladder appears mildly distended. There is trace stranding adjacent to the gallbladder. No obvious calcified gallstones. No significant biliary ductal dilatation. Pancreas: Unremarkable. Spleen: Unremarkable. Adrenals: Unremarkable. Kidneys and ureters: There is a 3 mm stone in the upper pole of the right kidney. No obstructing ureteral stone. No evidence of hydronephrosis. There is nonspecific bilateral symmetric perinephric fat stranding. Bladder: Unremarkable. Pelvic organs: Unremarkable. Bowel: Colonic diverticula are present. No evidence of bowel obstruction. No bowel wall thickening. Appendix is not well-seen. Peritoneum: No free air. No significant free fluid. Lymph nodes: Unremarkable. Vasculature: Aortoiliac and femoral atherosclerosis is noted. Soft tissues: Unremarkable. Bones: Degenerative changes of the lumbar spine are present. IMPRESSION: 1. Mildly distended gallbladder with possible trace adjacent inflammatory change which could be related to acute cholecystitis, consider follow-up ultrasound. 2. Small nonobstructing right renal stone. 3. Colonic diverticulosis. Conclusions/Impression: Stage II SHAHANA in the setting of several insults including recent ACEi/NSAIDs use, relative hypotension, other likely leading to some intrinsic injury but renal function plateaued and pt is making some urine. Underlying CKD Stage III unspecified with proteinuria -Cont gentle IVF hydration, cont to hold offending meds, monitor closely. Hyperkalemia Resolved Nephrolithiasis, non-obstructing No hydro on imaging, monitor as OP Chronic essential HTN Hold ACEi, avoid relative hypotension Romeo Millan MD, ALLYN
[2022-04-20] MEDS: NA CHLORIDE 0.9% 1,000 ML IV SCH (12:00)
--- NOTE | 2022-04-20 14:32 | P.DS ---
Admission Date: 04/18/22 Discharge Date: 04/20/22 Disposition: TRANSFER TO [facility] Discharge Condition: FAIR Reason for Admission: Abdominal Pain Consultations: General Surgery - Dr. Oneill GI - Dr. Bermudez Nephrology - Dr. Carpio, Dr. Millan Procedures: CT abd (04/17): IMPRESSION: 1. Mildly distended gallbladder with possible trace adjacent inflammatory change which could be related to acute cholecystitis, consider follow-up ultrasound. 2. Small nonobstructing right renal stone. 3. Colonic diverticulosis. RUQ U/S (04/17): IMPRESSION: Negative for cholelithiasis or acute cholecystitis. No biliary duct dilatation. MRCP (04/18): IMPRESSION: Distended gallbladder with borderline wall thickening. No intra or extrahepatic biliary ductal dilatation or evidence of choledocholithiasis. HIDA (04/19): IMPRESSION: Nonvisualized gallbladder and biliary ducts which would indicate biliary obstruction. Radiotracer uptake was seen in the small bowel at 2 hours but not before. This would exclude a complete obstruction though the degree of obstruction is likely high-grade. The intra and extrahepatic bile ducts and gallbladder were never visualized. ERCP could be considered for further evaluation. Brief History of Present Illness: 71yo M, PMH: DM2, HTN, CAD, who presented to ED due to 2 days of epigastric pain and vomiting. He has been unable to hold anything down. Workup in ED revealed leukocytosis, hyperbilirubinemia, elevated LFTs. CT abdomen with mild gallbladder wall thicening and distention. Abdominal ultrasound with similar findings. No evidence of cholelithiasis. Normal diameter of common bile duct. Admitted for further evaluation of possible acute cholecystitis / biliary obstruction. 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 GI and general surgery were consulted. Patient underwent CT abdomen, U/S, MRCP which were inconclusive. HIDA scan on 04/19 consistent with suspected CBC stricture / high degree obstruction. Patient had improvement of his abdominal pain and vomiting. He has been tolerating a clear liquid diet. LFTs gradually improved since admission. T bili peaked in the high 5s on 04/19 and down to 3 on 04/20. Patient is to be transferred to [facility] for ERCP and further management. We currently do not have a GI specialist that performs ERCPs. Patient remained afebrile throughout hospitalization and leukocytosis resolved. On 04/19 patient's creatinine was noted to increase to 2. He has a history of CKDIII, but has never seen a sensor operator. Nephrology was consulted, suspect this is multifactorial with NSAID/ACEI usage and possibly relative hypotension. Vital Signs/Physical Exam: Temp Pulse Resp BP Pulse Ox 97.8 F 90 14 121/56 L 93 04/20/22 12:00 04/20/22 12:00 04/20/22 12:00 04/20/22 12:00 04/20/22 12:00 General: Alert, In no apparent distress, Oriented x3 HEENT: Scleral icterus (mild) Neck: Supple, No LAD Respiratory: Clear to auscultation bilaterally, Diminished Cardiovascular: No edema, Regular rate/rhythm Gastrointestinal: Soft and benign, Non-distended, Tenderness (minimal RUQ/e pigastric) Musculoskeletal: No contractures, No tenderness Integumentary: No rashes, No significant lesion Neurological: Normal speech, Normal strength at 5/5 x4 extr, Normal affect Laboratory Data at Discharge: WBC 6.20 K/uL (4.3-10.9) D 04/20/22 02:44 Hgb 10.2 g/dL (13.6-17.9) L 04/20/22 02:44 Hct 29.2 % (39.6-49.0) L 04/20/22 02:44 Plt Count 217 K/uL (152-406) 04/20/22 02:44 PT 15.0 SECONDS (9.5-12.5) H 04/17/22 23:29 INR 1.36 04/17/22 23:29 APTT 22.3 SECONDS (24.3-36.9) L 04/17/22 23:29 Sodium 138 mmol/L (136-145) 04/20/22 02:44 Potassium 4.5 mmol/L (3.5-5.1) 04/20/22 02:44 BUN 42 mg/dL (7-18) H 04/20/22 02:44 Creatinine 2.77 mg/dL (0.55-1.3) H 04/20/22 02:44 Glucose 238 mg/dL (74-106) H 04/20/22 02:44 Uric Acid 7.7 mg/dL (3.5-7.2) H 04/20/22 02:44 Phosphorus 1.1 mg/dL (2.5-4.9) L 04/20/22 02:44 Magnesium 1.9 mg/dL (1.8-2.4) 04/20/22 02:44 Total Bilirubin 3.9 mg/dL (0.2-1.0) H 04/20/22 02:44 AST 160 U/L (15-37) H 04/20/22 02:44 ALT 166 U/L (12-78) H 04/20/22 02:44 Alkaline Phosphatase 242 U/L (45-117) H 04/20/22 02:44 Triglycerides 71 mg/dL (<150) 04/18/22 04:01 Cholesterol 83 mg/dL (<200) 04/18/22 04:01 HDL Cholesterol 39 mg/dL (40-60) L 04/18/22 04:01 Cholesterol/HDL Ratio 2.13 04/18/22 04:01 Amylase 41 U/L (25-115) 04/18/22 04:01 Lipase 24 U/L (73-393) L 04/20/22 02:44 Home Medications: Metoprolol Tartrate [Lopressor*] 50 mg PO BID #60 tab 09/04/16 Aspirin [Aspirin EC 81 MG] 81 mg pe PO DAILY 05/15/18 Metformin HCl [Metformin ER Osmotic] 1,000 mg PO DAILY 05/15/18 Multivitamin/Iron/Folic Acid [Centrum Adults Tablet] 1 tab PO DAILY 05/15/18 Atorvastatin Calcium [Lipitor] 40 mg PO BEDTIME #30 tab 05/18/18 Clopidogrel Bisulfate [Plavix] 75 mg PO DAILY #30 tablet 05/18/18 Gabapentin [Neurontin*] 400 mg PO BEDTIME #30 cap 05/18/18 lisinopriL [Prinivil*] 10 mg PO DAILY #30 tab 05/18/18 Hydrocodone Bit/Acetaminophen [Points 7.5-325 Tablet] 1 each PO Q6HR PRN 04/18/22 Losartan Potassium [Cozaar] 25 mg PO DAILY 04/18/22 Followup: Unknown,U [Primary Care Provider] - Time spent managing pt's care (in minutes): 45
[2022-04-20 17:01] VITALS: BP 119/56; TEMP 97.2
[2022-04-21 11:25] LABS: HBsAG Nonreactive (Nonreactive)
[2022-04-23 16:59] LABS: Alpha Fetoprotein-Tumor Marker 1.1 ng/mL (<6.1)
== END 2022-04-20 16:50 | disposition short-term general hospital (02) | DRG 445 ==
LOC: ER 20:15 → ERHOLD 04-18 01:35 → 4TH 04-18 19:16
PROVIDERS: ADMIT Internal Medicine; ATTEND Hospitalist
DX: K83.1 Obstruction of bile duct (principal); N17.9 Acute kidney failure, unspecified; Z68.41 Body mass index [BMI] 40.0-44.9, adult; E87.1 Hypo-osmolality and hyponatremia; E66.9 Obesity, unspecified; I12.9 Hypertensive chronic kidney disease with stage 1 through stage 4 chronic kidney disease, or unspecified chronic kidney disease; N18.30 Chronic kidney disease, stage 3 unspecified; E11.22 Type 2 diabetes mellitus with diabetic chronic kidney disease; E11.65 Type 2 diabetes mellitus with hyperglycemia; E11.42 Type 2 diabetes mellitus with diabetic polyneuropathy; D63.8 Anemia in other chronic diseases classified elsewhere; E80.6 Other disorders of bilirubin metabolism; E87.5 Hyperkalemia; E88.09 Other disorders of plasma-protein metabolism, not elsewhere classified; D50.9 Iron deficiency anemia, unspecified; E83.39 Other disorders of phosphorus metabolism; I95.9 Hypotension, unspecified; N20.0 Calculus of kidney; D72.829 Elevated white blood cell count, unspecified; T46.4X5A Adverse effect of angiotensin-converting-enzyme inhibitors, initial encounter; T39.395A Adverse effect of other nonsteroidal anti-inflammatory drugs [NSAID], initial encounter; R74.01 Elevation of levels of liver transaminase levels; R94.5 Abnormal results of liver function studies; Z60.2 Problems related to living alone; Z79.4 Long term (current) use of insulin; Z79.82 Long term (current) use of aspirin; Z90.49 Acquired absence of other specified parts of digestive tract; Z79.84 Long term (current) use of oral hypoglycemic drugs; Z79.899 Other long term (current) drug therapy; Z79.02 Long term (current) use of antithrombotics/antiplatelets; Z20.822 Contact with and (suspected) exposure to COVID-19
CPT/HCPCS: 36415; 71045; 74176; 74181; 76705; 78226; 80048; 80053; 80061; 80074; 80076; 81001; 82105; 82150; 82248; 82390; 82550; 82570; 82728; 82947; 83036; 83540; 83690; 83735; 84100; 84156; 84443; 84466; 84484; 84550; 85025; 85610; 85730; 86038; 86255; 86308; 86705; 86706; 86803; 87086; 87088; 87340; 93005; 96365; 96375; 99285; A9537; J1650; J1815; J2405; J2543; J2550; J3010; J7030; J7050; U0003